=== PATIENT | male | born 1970 | race Caucasian/White ===

== ENCOUNTER 2019-12-06 16:22 | Inpatient (IN) | payer OTHER ==
[~2019-12-06] VITALS: Ht 177.8 cm; Wt 113.1 kg
[2019-12-06] MEDS ORDERED: PIPERACILLIN/TAZOBACTAM 4.5 GM in IV NORMAL SALINE 100ML 100 ML IV ONE (16:45)
[2019-12-06 17:12] LABS: BASO # 0.1 x10^3/uL (0.0-0.2); BASO % 0 % (0-3); EOS % 0 % (0-3); HEMATOCRIT 49.2 % (39.0-53.0); HEMOGLOBIN 16.3 g/dL (13.0-17.5); LYMPH # 0.7 x10^3/uL (1.0-4.8); LYMPH % 2 % (24-48); MEAN CORPUSCULAR HEMOGLOBIN 29 pg (25-35); MEAN CORPUSCULAR HGB CONC 33 g/dL (31-37); MEAN CORPUSCULAR VOLUME 87 fL (79-100); MONO # 1.6 x10^3/uL (0.0-1.1); MONO % 6 % (0-9); NEUT # 26.5 x10^3/uL (1.8-7.7); NEUT % 92 % (31-73); PLATELET COUNT 409 x10^3/uL (140-400); RED BLOOD COUNT 5.65 x10^6/uL (4.30-5.70); RED CELL DISTRIBUTION WIDTH 13.4 % (11.5-14.5); WHITE BLOOD COUNT 28.9 x10^3/uL (4.0-11.0)
--- NOTE | 2019-12-06 17:16 | PHYS DOC ---
Past Medical History Past Medical History: Diabetes-Type I Alcohol Use: None Drug Use: None General Adult EDM: Chief Complaint: TESTICULAR PAIN OR INJURY HPI: HPI: 49-year-old male presented emergency department after being seen yesterday in [facility] for scrotal cellulitis and being discharged with antibiotics. Blood work has been drawn in clinic. Blood work came back today with blood sugar of 500 carbon dioxide of 7 and a white blood cell count of 26,000. He was sent to the emergency department for further evaluation treatment and care. On arrival the patient has pain in his scrotum which is not severe. At some mild to moderate pain. He denies any crepitus of the scrotum or any gangrenous regions. He has nausea. The pain is nonradiating and without alleviating factors. He has been taking his antibiotics as prescribed. Review of systems negative for chest pain shortness of breath vomiting. All other review of systems negative. ED course: 49-year-old male presenting with diabetic ketoacidosis with scrotal cellulitis. On evaluation the scrotum I was able to evaluate the entire scrotum including lifting up the scrotum. There is no black tissue. There is no crepitus to palpation of the scrotum. The patient was started on IV broad- spectrum antibiotics and IV fluid resuscitation. ABG obtained which shows acidosis. Bicarb ordered. Insulin bolus and drip ordered. CT abdomen pelvis ordered as well. Lactic acid was 3.3. Magnesium 2.3. Phosphorus 3.6. EKG obtained and reviewed by myself shows sinus tachycardia. ST segments congruent. Not suggestive of acute ischemia. CT abdomen pelvis pending at 6 PM. Patient was signed out to oncoming physician. We will work towards getting the patient a bed in the intensive care unit. Oncoming ER physician will follow up on testing and continue care while in the emergency department. Heart Score: Risk Factors: Risk Factors: DM, Current or recent (<one month) smoker, HTN, HLP, family history of CAD, obesity. Risk Scores: Score 0 - 3: 2.5% MACE over next 6 weeks - Discharge Home Score 4 - 6: 20.3% MACE over next 6 weeks - Admit for Clinical Observation Score 7 - 10: 72.7% MACE over next 6 weeks - Early Invasive Strategies Current Medications: Current Medications Medications (Trade) Dose Ordered Sig/Stephanie Start Time Stop Time Status Last Admin Dose Admin Piperacillin Sod/ Tazobactam Sod 4.5 gm/Sodium Chloride 100 ml @ 200 mls/hr 1X ONCE 12/06/19 16:45 12/06/19 17:14 DC Sodium Chloride 1,000 ml @ 1,000 mls/hr Q1H 12/06/19 16:43 Allergies: Allergies: Allergies Coded Allergies Type Severity Reaction Last Updated Verified Penicillins Allergy Intermediate Rash 12/06/19 Yes Physical Exam: PE: Constitutional: Well developed, well nourished, kussmaul breathing. alert. HENT: Normocephalic, atraumatic, bilateral external ears normal, oropharynx moist, no oral exudates, nose normal. [] Eyes: PERRLA, EOMI, conjunctiva normal, no discharge. [] Neck: Normal range of motion, no tenderness, supple, no stridor. [] Cardiovascular:Heart rate regular rhythm, no murmur [] Lungs & Thorax: Bilateral breath sounds clear to auscultation tachypneic. Abdomen: Bowel sounds normal, soft, no tenderness, no masses, no pulsatile masses. Scrotal exam: The scrotum is erythematous without crepitus to palpation. Normal testicles. No gangrenous regions. The scrotum was lifted up all aspects of the scrotum and perineum were visualized. Skin: Warm, dry, no erythema, no rash. [] Back: No tenderness, no CVA tenderness. [] Extremities: No tenderness, no cyanosis, no clubbing, ROM intact, no edema. [] Neurologic: Alert and oriented X 3, normal motor function, normal sensory function, no focal deficits noted. [] Psychologic: Affect normal, judgement normal, mood normal. [] Current Patient Data: Labs: Laboratory Tests Test 12/06/19 16:50 White Blood Count 28.9 x10^3/uL (4.0-11.0) H Red Blood Count 5.65 x10^6/uL (4.30-5.70) Hemoglobin 16.3 g/dL (13.0-17.5) Hematocrit 49.2 % (39.0-53.0) Mean Corpuscular Volume 87 fL (79-100) Mean Corpuscular Hemoglobin 29 pg (25-35) Mean Corpuscular Hemoglobin Concent 33 g/dL (31-37) Red Cell Distribution Width 13.4 % (11.5-14.5) Platelet Count 409 x10^3/uL (140-400) H Neutrophils (%) (Auto) 92 % (31-73) H Lymphocytes (%) (Auto) 2 % (24-48) L Monocytes (%) (Auto) 6 % (0-9) Eosinophils (%) (Auto) 0 % (0-3) Basophils (%) (Auto) 0 % (0-3) Neutrophils # (Auto) 26.5 x10^3/uL (1.8-7.7) H Lymphocytes # (Auto) 0.7 x10^3/uL (1.0-4.8) L Monocytes # (Auto) 1.6 x10^3/uL (0.0-1.1) H Eosinophils # (Auto) 0.0 x10^3/uL (0.0-0.7) Basophils # (Auto) 0.1 x10^3/uL (0.0-0.2) Platelet Estimate Pending Laboratory Tests 12/06/19 16:50 EKG: EKG: [] Radiology/Procedures: Radiology/Procedures: [] Course & Med Decision Making: Course & Med Decision Making Pertinent Labs and Imaging studies reviewed. (See chart for details) [] Dragon Disclaimer: Morris Disclaimer: This electronic medical record was generated, in whole or in part, using a voice recognition dictation system. Departure Departure Impression: Primary Impression: Diabetic ketoacidosis Additional Impressions: Severe sepsis Cellulitis, scrotum Disposition: 09 ADMITTED INPT THIS HOSP Admitting Physician: JEFFERSON Condition: GUARDED Referrals: ROMY KNOX MD (PCP) YODIT GARCIA MD Dec 06, 2019 17:15
[2019-12-06] MEDS: IV NORMAL SALINE 1000ML BAG 1,000 ML IV SCH ×7 (17:21→21:13)
[2019-12-06] MEDS ORDERED: CLINDAMYCIN 900MG PREMIX 50 ML IV ONE (17:30)
[2019-12-06] MEDS ORDERED: CIPROFLOXACIN 400MG PREMIX 200 ML IV ONE (17:30)
[2019-12-06] MEDS ORDERED: ONDANSETRON PF 4 MG/2 ML VIAL. IVP ONE (17:30)
[2019-12-06] MEDS ORDERED: IV NORMAL SALINE 1000ML BAG 1,000 ML IV ONE (17:30)
[2019-12-06] MEDS ORDERED: INSULIN REGULAR 100 UNIT/ML 3ML VIAL. IV ONE (17:30)
[2019-12-06 17:31] LABS: % BANDS 4 % (0-9); % LYMPHS 3 % (24-48); % MONOS 6 % (0-10); % SEGS 87 % (35-66); PLATELET CLUMP PRESENT; PLT ESTIMATE INCREASED (ADEQUATE); TOXIC GRANULATION SLIGHT; TOXIC VACUOLATION SLIGHT
[2019-12-06 17:32] LABS: ALBUMIN 3.5 g/dL (3.4-5.0); CALCIUM 9.4 mg/dL (8.5-10.1); CREATININE 1.5 mg/dL (0.7-1.3); DIRECT BILIRUBIN 0.2 mg/dL (0.0-0.2); GFR 49.7; POTASSIUM 4.8 mmol/L (3.5-5.1); TOTAL BILIRUBIN 0.7 mg/dL (0.2-1.0); TOTAL PROTEIN 8.3 g/dL (6.4-8.2)
[2019-12-06] MEDS: HYDROmorphone 2 MG/ML VIAL IV/SQ PRN ×3 (17:33→21:50)
[2019-12-06 17:45] LABS: BASE EXCESS ABG -22 mmol/L (-3-3); HCO3 ABG 5 mmol/L (21-28); PO2 ABG 103 mmHg (75-108); SAT O2 ABG 97 % (92-99)
[2019-12-06 17:59] LABS: FIO2 ABG 21%; PCO2 ABG 16 mmHg (35-46)
[2019-12-06] MEDS ORDERED: INSULIN,REGULAR 100 UNIT DRIP 100 ML IV ONE (18:00)
[2019-12-06] MEDS ORDERED: SODIUM BICARB ADULT 8.4% 50 MEQ/50 ML DISP.SYRIN. IV ONE (18:00)
[2019-12-06 18:12] LABS: MAGNESIUM 2.3 mg/dL (1.8-2.4); PHOSPHORUS 3.6 mg/dL (2.6-4.7)
[2019-12-06] MEDS ORDERED: CONTRAST GIVEN. MC PRN (18:15)
--- NOTE | 2019-12-06 18:21 | PDOC1 ---
History and Physical Date of Admission Date of Admission DATE: 12/06/19 TIME: 18:21 Identification/Chief Complaint Chief Complaint [facility] ,sent to the emergency department for further evaluation treatment and care. On arrival the patient has pain in his scrotum which is not severe.//denies any crepitus of the scrotum or any gangrenous regions. pos nausea. The pain is nonradiating and without alleviating factors. He has been taking his antibiotics as prescribed. Review of systems negative for chest pain shortness of breath vomiting. All other review of systems negative. FOUND TO HAVE diabetic ketoacidosis with scrotal cellulitis. On evaluation the scrotum I was able to evaluate the entire scrotum including lifting up the scrotum. There is no black tissue. There is no crepitus to palpation of the scrotum. PLAN IV broad-spectrum antibiotics and IV fluid resuscitation. ABG obtained which shows acidosis. Bicarb ordered. Insulin bolus and drip ordereD Lactic acid was 3.3. Magnesium 2.3. Phosphorus 3.6. EKG obtained and reviewed by myself shows sinus tachycardia. ST segments congruent Past Medical History Endocrine: Diabetes Family History Family History: Hypertension Social History Smoke: No ALCOHOL: none Drugs: None Current Medications Current Medications Current Medications Piperacillin Sod/ Tazobactam Sod 4.5 gm/Sodium Chloride 100 ml @ 200 mls/hr 1X ONCE IV ; Start 12/06/19 at 16:45; Stop 12/06/19 at 17:22; Status DC Sodium Chloride 1,000 ml @ 1,000 mls/hr Q1H IV Last administered on 12/06/19at 17:21; Start 12/06/19 at 16:43 Ondansetron HCl (Zofran) 4 mg 1X ONCE IVP Last administered on 12/06/19at 17:32; Start 12/06/19 at 17:30; Stop 12/06/19 at 17:31; Status DC Ciprofloxacin/ Dextrose 200 ml @ 200 mls/hr 1X ONCE IV Last administered on 12/06/19at 18:09; Start 12/06/19 at 17:30; Stop 12/06/19 at 18:29 Clindamycin Phosphate 50 ml @ 100 mls/hr 1X ONCE IV Last administered on 12/06/19at 17:50; Start 10/23/20 at 17:30; Stop 12/06/19 at 17:59; Status DC Sodium Chloride 1,000 ml @ 1,000 mls/hr 1X ONCE IV Last administered on 12/06/19at 18:03; Start 12/06/19 at 17:30; Stop 12/06/19 at 18:29 Insulin Human Regular (HumuLIN R VIAL) 10 unit 1X ONCE IV Last administered on 12/06/19at 17:42; Start 12/06/19 at 17:30; Stop 12/06/19 at 17:31; Status DC Hydromorphone HCl (Dilaudid) 0.5 mg PRN Q1HR PRN IV/SQ PAIN GREATER THAN 3/10 Last administered on 12/06/19at 17:33; Start 12/06/19 at 17:30 Insulin Human Regular 100 ml @ 0 mls/hr 1X ONCE IV ; Start 12/06/19 at 18:00; Stop 12/06/19 at 18:01; Status DC Sodium Bicarbonate (Sodium Bicarb Adult 8.4% Syr) 100 meq 1X ONCE IV ; Start 12/06/19 at 18:00; Stop 12/06/19 at 18:01; Status DC Iohexol (Omnipaque 300 Mg/ml) 60 ml 1X ONCE IV ; Start 12/06/19 at 18:30; Stop 12/06/19 at 18:31 Info (CONTRAST GIVEN -- Rx MONITORING) 1 each PRN DAILY PRN MC SEE COMMENTS; Start 12/06/19 at 18:15; Stop 12/08/19 at 18:14 Allergies Allergies: Coded Allergies: Penicillins (Verified Allergy, Intermediate, Rash, 12/06/19) ROS Review of System Review of systems negative for chest pain shortness of breath vomiting. 14 pt ros review of systems otherwise neg General: YES: Chills PSYCHOLOGICAL ROS: No: Anxiety, Behavioral Disorder, Concentration difficultie, Decreased libido, Depression, Disorientation, Hallucinations, Hostility, Irritablity, Memory difficulties, Mood Swings, Obsessive thoughts, Physical abuse, Sexual abuse, Sleep disturbances, Suicidal ideation, Other Eyes: Yes Blurry vision; No Decreased vision, No Double vision, No Dry eyes, No Excessive tearing, No Eye Pain, No Itchy Eyes, No Loss of vision, No Photophobia, No Scotomata, No Uses contacts, No Uses glasses, No Other ALLERGY AND IMMUNOLOGY: No: Hives, Insect Bite Sensitivity, Itchy/Watery Eyes, Nasal Congestion, Post Nasal Drip, Seasonal Allergies, Other Hematological and Lymphatic: No: Bleeding Problems, Blood Clots, Blood Transfusions, Brusing, Night Sweats, Pallor, Swollen Lymph Nodes, Other ENDOCRINE: No: Breast Changes, Galactorrhea, Hair Pattern Changes, Hot Flashes, Malaise/lethargy, Mood Swings, Palpitations, Polydipsia/polyuria, Skin Changes, Temperature Intolerance, Unexpected Weight Changes, Other Respiratory: No: Cough, Hemoptysis, Orthopnea, Pleuritic Pain, Shortness of breath, SOB with excertion, Sputum Changes, Stridor, Tachypnea, Wheezing, Other Cardiovascular: No Chest Pain, No Palpitations, No Orthopnea, No Paroxysmal Noc. Dyspnea, No Edema, No Lt Headedness, No Other Gastrointestinal: Yes Nausea; No Vomiting, No Abdominal Pain, No Diarrhea, No Constipation, No Melena, No Hematochezia, No Other Genitourinary: No Dysuria, No Frequency, No Incontinence, No Hematuria, No Retention, No Discharge, No Urgency, No Pain, No Flank Pain, No Other, No , No , No , No , No , No , No Musculoskeletal: No Gait Disturbance, No Joint Pain, No Joint Stiffness, No Joint Swelling, No Muscle Pain, No Muscular Weakness, No Pain In:, No Swelling In:, No Other Neurological: No Behavorial Changes, No Bowel/Bladder ControlChng, No Confusion, No Dizziness, No Gait Disturbance, No Headaches, No Impaired Coord/balance, No Memory Loss, No Numbness/Tingling, No Seizures, No Speech Problems, No Tremors, No Visual Changes, No Weakness, No Other Skin: Yes Dry Skin, Yes Skin Lesion Changes; No Eczema, No Hair Changes, No Lumps, No Mole Changes, No Mottling, No Nail Changes, No Pruritus, No Rash, No Other, No Acne Physical Exam Physical Exam Constitutional: Well developed, well nourished, kussmaul breathing. alert. HENT: Normocephalic, atraumatic, bilateral external ears normal, oropharynx moist, no oral exudates, nose normal. [] Eyes: PERRLA, EOMI, conjunctiva normal, no discharge. [] Neck: Normal range of motion, no tenderness, supple, no stridor. [] Cardiovascular:Heart rate regular rhythm, no murmur [] Lungs & Thorax: Bilateral breath sounds clear to auscultation tachypneic. Abdomen: Bowel sounds normal, soft, no tenderness, no masses, no pulsatile masses. Scrotal exam: The scrotum is erythematous without crepitus to palpation. Normal testicles. No gangrenous regions. The scrotum was lifted up all aspects of the scrotum and perineum were visualized. Skin: Warm, dry, no erythema, no rash. [] Back: No tenderness, no CVA tenderness. [] Extremities: No tenderness, no cyanosis, no clubbing, ROM intact, no edema. [] Neurologic: Alert and oriented X 3, normal motor function, normal sensory function, no focal deficits noted. [] Psychologic: Affect normal, judgement normal, mood normal. [] General: Alert, Oriented X3, Cooperative, mild distress HEENT: Atraumatic, EOMI, Mucous membr. moist/pink Lungs: Normal air movement Heart: RRR, no gallops Breasts: Not examined Abdomen: Normal bowel sounds, Soft, No tenderness Male Genitals Exam: scrotum tenderness (R) Rectal Exam: not examined PELVIC: Examination not indicated Extremities: No clubbing, No cyanosis Neuro: Normal speech, Cranial nerves 3-12 NL Psych/Mental Status: Mental status NL, Mood NL Vitals Vitals Vital Signs Date Time Temp Pulse Resp B/P (MAP) Pulse Ox O2 Delivery O2 Flow Rate FiO2 12/06/19 17:40 Room Air 12/06/19 16:40 97.7 141 30 167/93 (117) 97 97.7 Labs Labs Laboratory Tests Test 12/06/19 16:50 12/06/19 17:24 12/06/19 17:31 White Blood Count 28.9 x10^3/uL (4.0-11.0) Red Blood Count 5.65 x10^6/uL (4.30-5.70) Hemoglobin 16.3 g/dL (13.0-17.5) Hematocrit 49.2 % (39.0-53.0) Mean Corpuscular Volume 87 fL (79-100) Mean Corpuscular Hemoglobin 29 pg (25-35) Mean Corpuscular Hemoglobin Concent 33 g/dL (31-37) Red Cell Distribution Width 13.4 % (11.5-14.5) Platelet Count 409 x10^3/uL (140-400) Neutrophils (%) (Auto) 92 % (31-73) Lymphocytes (%) (Auto) 2 % (24-48) Monocytes (%) (Auto) 6 % (0-9) Eosinophils (%) (Auto) 0 % (0-3) Basophils (%) (Auto) 0 % (0-3) Neutrophils # (Auto) 26.5 x10^3/uL (1.8-7.7) Lymphocytes # (Auto) 0.7 x10^3/uL (1.0-4.8) Monocytes # (Auto) 1.6 x10^3/uL (0.0-1.1) Eosinophils # (Auto) 0.0 x10^3/uL (0.0-0.7) Basophils # (Auto) 0.1 x10^3/uL (0.0-0.2) Segmented Neutrophils % 87 % (35-66) Band Neutrophils % 4 % (0-9) Lymphocytes % 3 % (24-48) Monocytes % 6 % (0-10) Toxic Granulation Slight Toxic Vacuolation Slight Platelet Estimate Increased (ADEQUATE) Platelet Clumps, EDTA Present Giant Platelets Occ Sodium Level 130 mmol/L (136-145) Potassium Level 4.8 mmol/L (3.5-5.1) Chloride Level 95 mmol/L (98-107) Carbon Dioxide Level 8 mmol/L (21-32) Anion Gap 27 (6-14) Blood Urea Nitrogen 28 mg/dL (8-26) Creatinine 1.5 mg/dL (0.7-1.3) Estimated GFR (Cockcroft-Gault) 49.7 Glucose Level 531 mg/dL (70-99) Lactic Acid Level 3.3 mmol/L (0.4-2.0) Calcium Level 9.4 mg/dL (8.5-10.1) Phosphorus Level 3.6 mg/dL (2.6-4.7) Magnesium Level 2.3 mg/dL (1.8-2.4) Total Bilirubin 0.7 mg/dL (0.2-1.0) Direct Bilirubin 0.2 mg/dL (0.0-0.2) Aspartate Amino Transf (AST/SGOT) 9 U/L (15-37) Alanine Aminotransferase (ALT/SGPT) 15 U/L (16-63) Alkaline Phosphatase 96 U/L (46-116) Troponin I Quantitative < 0.017 ng/mL (0.000-0.055) Total Protein 8.3 g/dL (6.4-8.2) Albumin 3.5 g/dL (3.4-5.0) Lipase 46 U/L (73-393) O2 Saturation 97 % (92-99) Arterial Blood pH 7.12 (7.35-7.45) Arterial Blood pCO2 at Patient Temp 16 mmHg (35-46) Arterial Blood pO2 at Patient Temp 103 mmHg (75-108) Arterial Blood HCO3 5 mmol/L (21-28) Arterial Blood Base Excess -22 mmol/L (-3-3) FiO2 21% Glucose (Fingerstick) 573 mg/dL (70-99) Laboratory Tests Test 12/06/19 16:50 12/06/19 17:24 12/06/19 17:31 White Blood Count 28.9 x10^3/uL (4.0-11.0) Red Blood Count 5.65 x10^6/uL (4.30-5.70) Hemoglobin 16.3 g/dL (13.0-17.5) Hematocrit 49.2 % (39.0-53.0) Mean Corpuscular Volume 87 fL (79-100) Mean Corpuscular Hemoglobin 29 pg (25-35) Mean Corpuscular Hemoglobin Concent 33 g/dL (31-37) Red Cell Distribution Width 13.4 % (11.5-14.5) Platelet Count 409 x10^3/uL (140-400) Neutrophils (%) (Auto) 92 % (31-73) Lymphocytes (%) (Auto) 2 % (24-48) Monocytes (%) (Auto) 6 % (0-9) Eosinophils (%) (Auto) 0 % (0-3) Basophils (%) (Auto) 0 % (0-3) Neutrophils # (Auto) 26.5 x10^3/uL (1.8-7.7) Lymphocytes # (Auto) 0.7 x10^3/uL (1.0-4.8) Monocytes # (Auto) 1.6 x10^3/uL (0.0-1.1) Eosinophils # (Auto) 0.0 x10^3/uL (0.0-0.7) Basophils # (Auto) 0.1 x10^3/uL (0.0-0.2) Segmented Neutrophils % 87 % (35-66) Band Neutrophils % 4 % (0-9) Lymphocytes % 3 % (24-48) Monocytes % 6 % (0-10) Toxic Granulation Slight Toxic Vacuolation Slight Platelet Estimate Increased (ADEQUATE) Platelet Clumps, EDTA Present Giant Platelets Occ Sodium Level 130 mmol/L (136-145) Potassium Level 4.8 mmol/L (3.5-5.1) Chloride Level 95 mmol/L (98-107) Carbon Dioxide Level 8 mmol/L (21-32) Anion Gap 27 (6-14) Blood Urea Nitrogen 28 mg/dL (8-26) Creatinine 1.5 mg/dL (0.7-1.3) Estimated GFR (Cockcroft-Gault) 49.7 Glucose Level 531 mg/dL (70-99) Lactic Acid Level 3.3 mmol/L (0.4-2.0) Calcium Level 9.4 mg/dL (8.5-10.1) Phosphorus Level 3.6 mg/dL (2.6-4.7) Magnesium Level 2.3 mg/dL (1.8-2.4) Total Bilirubin 0.7 mg/dL (0.2-1.0) Direct Bilirubin 0.2 mg/dL (0.0-0.2) Aspartate Amino Transf (AST/SGOT) 9 U/L (15-37) Alanine Aminotransferase (ALT/SGPT) 15 U/L (16-63) Alkaline Phosphatase 96 U/L (46-116) Troponin I Quantitative < 0.017 ng/mL (0.000-0.055) Total Protein 8.3 g/dL (6.4-8.2) Albumin 3.5 g/dL (3.4-5.0) Lipase 46 U/L (73-393) O2 Saturation 97 % (92-99) Arterial Blood pH 7.12 (7.35-7.45) Arterial Blood pCO2 at Patient Temp 16 mmHg (35-46) Arterial Blood pO2 at Patient Temp 103 mmHg (75-108) Arterial Blood HCO3 5 mmol/L (21-28) Arterial Blood Base Excess -22 mmol/L (-3-3) FiO2 21% Glucose (Fingerstick) 573 mg/dL (70-99) Images Images INDICATION: Scrotal cellulitis TECHNIQUE: Sequential axial images through the abdomen and pelvis obtained following the administration of 60 mL of Omni 300 IV contrast. Sagittal and coronal reformatted images were reconstructed from the axial data and reviewed. Comparisons: None FINDINGS: Heart size is normal. No pericardial effusion. Visualized lung bases are clear. No pleural effusion. Liver, spleen, pancreas, gallbladder and adrenals are unremarkable. No perinephric inflammation or hydronephrosis. No renal or ureteral calculi are identified. Bladder is distended and appears thin-walled. Prostate is not enlarged. Large and small bowel are unremarkable. Appendix is normal. No free intra-abdominal air or fluid. No obstruction. Abdominal aorta has a normal course and caliber. Abdominal vasculature is patent. No enlarged abdominal lymph nodes are identified. There is skin thickening at the scrotum. Small left-sided hydrocele is noted. No suspicious osseous lesions or acute fractures. IMPRESSION: 1. Skin thickening at the scrotum with a small left-sided hydrocele. 2. No intra-abdominal abnormality identified. Exposure: One or more of the following in the visualized dose reduction techniques were utilized for this examination: 1. Automated exposure control 2. Adjustment of the MA and/or KV according to patient size 3. Use of iterative of reconstructive technique Electronically signed by: Claudio Pollack MD (12/06/2019 6:53 PM) [facility] DICTATED and SIGNED BY: CLAUDIO POLLACK MD DATE: 12/06/191852 VTE Prophylaxis Ordered VTE Prophylaxis Devices: Yes VTE Pharmacological Prophylaxi: Yes Assessment/Plan Assessment/Plan IMPRESSION: 1. DKA 1. Skin thickening at the scrotum with a small left-sided hydrocele. c/w cellulitis 2. No intra-abdominal abnormality identified. 4. MORBID OBESITY 5. sepsis 6. UNCONTROLLED DIABETES PLAN ADMIT BLOOD CULT ICU BED DKA INSULIN PROTOCOL ID CONSULT DVT PROPHYLAXIS EMPERIC IV ANTIBIOTICS FREQUENT LABS GI PROPHYLAXIS A1C 47 MIN CC TIME Justifications for Admission Other Justification FULBRIGHT,SILVANO W MD Dec 06, 2019 18:21
[2019-12-06] MEDS ORDERED: IOHEXOL 300 MG/ML 100ML VIAL. IV ONE (18:30)
--- NOTE | 2019-12-06 18:56 | RAD ---
Exam: CT of abdomen and pelvis with contrast INDICATION: Scrotal cellulitis TECHNIQUE: Sequential axial images through the abdomen and pelvis obtained following the administration of 60 mL of Omni 300 IV contrast. Sagittal and coronal reformatted images were reconstructed from the axial data and reviewed. Comparisons: None FINDINGS: Heart size is normal. No pericardial effusion. Visualized lung bases are clear. No pleural effusion. Liver, spleen, pancreas, gallbladder and adrenals are unremarkable. No perinephric inflammation or hydronephrosis. No renal or ureteral calculi are identified. Bladder is distended and appears thin-walled. Prostate is not enlarged. Large and small bowel are unremarkable. Appendix is normal. No free intra-abdominal air or fluid. No obstruction. Abdominal aorta has a normal course and caliber. Abdominal vasculature is patent. No enlarged abdominal lymph nodes are identified. There is skin thickening at the scrotum. Small left-sided hydrocele is noted. No suspicious osseous lesions or acute fractures. IMPRESSION: 1. Skin thickening at the scrotum with a small left-sided hydrocele. 2. No intra-abdominal abnormality identified. Exposure: One or more of the following in the visualized dose reduction techniques were utilized for this examination: 1. Automated exposure control 2. Adjustment of the MA and/or KV according to patient size 3. Use of iterative of reconstructive technique Electronically signed by: Nelly Law MD (12/06/2019 6:53 PM) [facility]
[2019-12-06 19:30] LABS: BILIRUBIN,URINE SMALL (NEG); CLARITY,URINE CLEAR; COLOR,URINE YELLOW; NITRITE,URINE NEGATIVE (NEG); PROTEIN,URINE 100 mg/dL (NEG-TRACE); UROBILINOGEN,URINE 0.2 mg/dL (0.2 mg/dL)
[2019-12-06] MEDS ORDERED: LORazepam 0.5 MG TABLET PO PRN (19:30)
[2019-12-06] MEDS ORDERED: 0.9 % SODIUM CHLORIDE 10 ML DISP.SYRIN. IV PRN (19:30)
[2019-12-06] MEDS ORDERED: ALBUTEROL SULFATE 2.5 MG/3 ML NEBU. NEB PRN (19:30)
[2019-12-06] MEDS ORDERED: guaiFENesin ORAL 200 MG/10 ML LIQUID. PO PRN (19:30)
[2019-12-06] MEDS ORDERED: levOFLOXacin PER PHARMACY. MC PRN (19:30)
[2019-12-06] MEDS ORDERED: SODIUM PHOSPHATES 19/7GM 133 ML ENEMA. PR PRN (19:30)
[2019-12-06] MEDS ORDERED: ONDANSETRON PF 4 MG/2 ML VIAL. IV PRN (19:30)
[2019-12-06] MEDS ORDERED: cloNIDine HCL 0.1 MG TABLET PO PRN (19:30)
[2019-12-06] MEDS ORDERED: DOCUSATE SODIUM 100 MG CAPSULE. PO PRN (19:30)
[2019-12-06] MEDS ORDERED: ACETAMINOPHEN 325 MG TABLET. PO PRN (19:30)
[2019-12-06 19:36] LABS: AMORPHOUS SEDIMENT,UR PRESENT /HPF; BACTERIA,URINE 0 /HPF (0-FEW); GRANULAR CASTS,URINE OCCASIONAL /HPF; HYALINE CASTS, URINE FEW /HPF; RBC,URINE 0 /HPF (0-2); WBC,URINE 0 /HPF (0-4)
[2019-12-06 19:38] LABS: PROTHROMBIN TIME PATIENT 17.4 SEC (11.7-14.0)
[2019-12-06 19:48] LABS: D-DIMER 2.09 ug/mlFEU (0.00-0.50)
[2019-12-06] MEDS ORDERED: VANCOMYCIN 2 GM in IV NORMAL SALINE 500ML BAG 500 ML IV ONE (20:00)
[2019-12-06] MEDS ORDERED: IV NORMAL SALINE 500ML BAG 500 ML IV PRN (21:00)
[2019-12-06 23:00] VITALS: BP 108/74
--- NOTE | 2019-12-06 23:31 | NUR ---
Pt. arrived to ICU via bed from ED w/ Scrotal swelling/pain and DKA. He is A/O x4 and will make needs known. Pain level down to 2.
[2019-12-07] VITALS (15 sets, daily range): BP systolic 94–124; BP diastolic 43–77
[2019-12-07 00:06] LABS: CALCIUM 8.4 mg/dL (8.5-10.1); GFR 79.4; POTASSIUM 3.4 mmol/L (3.5-5.1)
[2019-12-07 00:10] LABS: PO2 ABG 66 mmHg (75-108); SAT O2 ABG 95 % (92-99)
[2019-12-07 00:18] LABS: FIO2 ABG 21; HCO3 ABG 13 mmol/L (21-28); PCO2 ABG 24 mmHg (35-46)
[2019-12-07] MEDS: ENOXAPARIN 40 MG/0.4 ML SYRINGE. SQ SCH ×2 (00:23→21:24)
[2019-12-07] MEDS: VANCOMYCIN PER PHARMACY MC PRN ×2 (01:45→13:01)
--- NOTE | 2019-12-07 01:46 | NUR ---
Pharmacy Vancomycin Dosing Note S:Consulted to monitor and dose vancomycin started 12/06/19. O:MIRA OLIVER is a 49 year old M with Cellulitis . Height: 5 feet, 10 inches Weight: 113.1 kg [place] Body Weight: 73.00 Adjusted Body Weight: 89.04 Dosing Weight: Actual Other Antibiotics: LEVOFLOXACIN 500MG Q24H LABS: Last BUN: 21 Last Creatinine: 1 Creatinine Clearance: 74 mL/min Last WBC: 28.9 Last Procalcitonin: Tmax (past 24 hours): Microbiology: I/O: Drug Levels: Last level: on at Last dose given 12/06/19 at 2100 Vancomycin Dosing: Loading Dose: 2000 mg x1 Dosing Weight: Actual Target Trough: 10-20 A: Based on: WT AND CRCL P: 1. Begin Vancomycin 1750 mg IV q12h 2. Follow up Trough level on 12/08/19 at 0830 3. Pharmacy will continue to monitor, follow and adjust therapy as needed. TRISTON WATSON RPH, 12/07/19 0146 Signed: 12/07/19 at 0147 by TRISTON WATSON RPH PHA
[2019-12-07] MEDS ORDERED: DEXTROSE 50% 25 GM / 50ML DISP.SYRIN. IV PRN (02:15)
--- NOTE | 2019-12-07 03:37 | EKG ---
[facility] [address] [place] [address] Test Date: 2019-12-06 Test Time: 17:12:29 Pat Name: MIRA OLIVER Department: Room: Gender: M Inspector Eyeglass: : 1970 Requested By: YODIT GARCIA Order Number: [id number] Reading MD: Measurements Intervals [place] Rate: 139 P: CA: QRS: -164 QRSD: 68 T: 145 QT: 332 QTc: 511 Interpretive Statements SUPRAVENTRICULAR TACHYCARDIA ABNORMAL RIGHT SUPERIOR AXIS DEVIATION CONSIDER RIGHT VENTRICULAR HYPERTROPHY QRS(T) CONTOUR ABNORMALITY CONSIDER HIGH LATERAL INFARCT ABNORMAL ECG RI6.01 No previous ECG available for comparison
[2019-12-07] MEDS: INSULIN LISPRO 300 UNITS/3 ML VIAL. SQ SCH ×7 (04:30→20:00)
[2019-12-07] MEDS: HYDROmorphone 2 MG/ML VIAL IVP PRN ×2 (04:51→18:20)
[2019-12-07 05:12] LABS: BASO # 0.1 x10^3/uL (0.0-0.2); BASO % 1 % (0-3); EOS % 0 % (0-3); HEMATOCRIT 36.5 % (39.0-53.0); HEMOGLOBIN 12.7 g/dL (13.0-17.5); LYMPH # 0.8 x10^3/uL (1.0-4.8); LYMPH % 5 % (24-48); MEAN CORPUSCULAR HEMOGLOBIN 29 pg (25-35); MEAN CORPUSCULAR HGB CONC 35 g/dL (31-37); MEAN CORPUSCULAR VOLUME 83 fL (79-100); MONO # 1.4 x10^3/uL (0.0-1.1); MONO % 8 % (0-9); NEUT # 14.2 x10^3/uL (1.8-7.7); NEUT % 86 % (31-73); PLATELET COUNT 275 x10^3/uL (140-400); RED CELL DISTRIBUTION WIDTH 13.3 % (11.5-14.5); WHITE BLOOD COUNT 16.5 x10^3/uL (4.0-11.0)
[2019-12-07 05:27] LABS: CALCIUM 8.2 mg/dL (8.5-10.1); CREATININE 0.9 mg/dL (0.7-1.3); GFR 89.7; POTASSIUM 3.4 mmol/L (3.5-5.1)
[2019-12-07 05:32] LABS: ALBUMIN 2.4 g/dL (3.4-5.0); ALBUMIN/GLOBULIN RATIO 0.6 (1.0-1.7); TOTAL BILIRUBIN 0.5 mg/dL (0.2-1.0); TOTAL PROTEIN 6.4 g/dL (6.4-8.2)
--- NOTE | 2019-12-07 05:46 | NUR ---
Around 0530 lab called w/ a critical CO2 of 12. Notified around 0541 and he wants a BMP repeated @ noon.
--- NOTE | 2019-12-07 06:49 | NUR ---
Talked w/ Dr. Jermaine Neal about consult. Will see pt. later today.
[2019-12-07] MEDS ORDERED: FLU VACC QS 2020-21(6MOS+)/PF 0.5 ML SYRINGE. VAX IM ONE (09:00)
[2019-12-07] MEDS: IV NORMAL SALINE 1000ML BAG 1,000 ML IV SCH ×2 (09:06→18:20)
[2019-12-07] MEDS ORDERED: IV NORMAL SALINE 1000ML BAG 1,000 ML IV ONE (09:15)
[2019-12-07] MEDS: VANCOMYCIN 1.75 GM in IV NORMAL SALINE 500ML BAG 500 ML IV SCH ×2 (09:19→21:24)
[2019-12-07] MEDS ORDERED: DIPHENHYDRAMINE/ZINC ACETATE 2%/0.1% TOPICAL CREAM 28GM TUBE. TP PRN (09:30)
--- NOTE | 2019-12-07 09:30 | PDOC ---
PROGRESS NOTES Date of Service: DATE: 12/07/19 TIME: 09:27 Chief Complaint Chief Complaint 1. DKA 1. Skin thickening at the scrotum with a small left-sided hydrocele. c/w cellulitis 2. No intra-abdominal abnormality identified. 4. obese, BMI 36 5. sepsis 6. UNCONTROLLED DIABETES 2, poor compliance 2 years, had no insurance until recently History of Present Illness History of Present Illness admitted to ICU gap closed this AM, now worse, will give additional fluid and insulin cont the IV abx he reviewed his entire 2 yr history with me still havining marked scrotal redness and swelling OK to transfer out of ICU later today, recheck labs at noon Vitals Vitals Vital Signs Date Time Temp Pulse Resp B/P (MAP) Pulse Ox O2 Delivery O2 Flow Rate FiO2 12/07/19 07:46 Room Air 12/07/19 07:00 97.9 105 20 110/69 (83) 93 97.9 Physical Exam General: Alert, Oriented X3, Cooperative, mild distress Abdomen: Normal bowel sounds, Soft, No tenderness Extremities: No clubbing, No cyanosis Labs LABS Laboratory Tests Test 12/06/19 16:50 12/06/19 17:24 12/06/19 17:31 12/06/19 19:15 White Blood Count 28.9 x10^3/uL (4.0-11.0) Red Blood Count 5.65 x10^6/uL (4.30-5.70) Hemoglobin 16.3 g/dL (13.0-17.5) Hematocrit 49.2 % (39.0-53.0) Mean Corpuscular Volume 87 fL (79-100) Mean Corpuscular Hemoglobin 29 pg (25-35) Mean Corpuscular Hemoglobin Concent 33 g/dL (31-37) Red Cell Distribution Width 13.4 % (11.5-14.5) Platelet Count 409 x10^3/uL (140-400) Neutrophils (%) (Auto) 92 % (31-73) Lymphocytes (%) (Auto) 2 % (24-48) Monocytes (%) (Auto) 6 % (0-9) Eosinophils (%) (Auto) 0 % (0-3) Basophils (%) (Auto) 0 % (0-3) Neutrophils # (Auto) 26.5 x10^3/uL (1.8-7.7) Lymphocytes # (Auto) 0.7 x10^3/uL (1.0-4.8) Monocytes # (Auto) 1.6 x10^3/uL (0.0-1.1) Eosinophils # (Auto) 0.0 x10^3/uL (0.0-0.7) Basophils # (Auto) 0.1 x10^3/uL (0.0-0.2) Segmented Neutrophils % 87 % (35-66) Band Neutrophils % 4 % (0-9) Lymphocytes % 3 % (24-48) Monocytes % 6 % (0-10) Toxic Granulation Slight Toxic Vacuolation Slight Platelet Estimate Increased (ADEQUATE) Platelet Clumps, EDTA Present Giant Platelets Occ Prothrombin Time 17.4 SEC (11.7-14.0) Prothromb Time International Ratio 1.5 (0.8-1.1) Sodium Level 130 mmol/L (136-145) Potassium Level 4.8 mmol/L (3.5-5.1) Chloride Level 95 mmol/L (98-107) Carbon Dioxide Level 8 mmol/L (21-32) Anion Gap 27 (6-14) Blood Urea Nitrogen 28 mg/dL (8-26) Creatinine 1.5 mg/dL (0.7-1.3) Estimated GFR (Cockcroft-Gault) 49.7 Glucose Level 531 mg/dL (70-99) Lactic Acid Level 3.3 mmol/L (0.4-2.0) Calcium Level 9.4 mg/dL (8.5-10.1) Phosphorus Level 3.6 mg/dL (2.6-4.7) Magnesium Level 2.3 mg/dL (1.8-2.4) Total Bilirubin 0.7 mg/dL (0.2-1.0) Direct Bilirubin 0.2 mg/dL (0.0-0.2) Aspartate Amino Transf (AST/SGOT) 9 U/L (15-37) Alanine Aminotransferase (ALT/SGPT) 15 U/L (16-63) Alkaline Phosphatase 96 U/L (46-116) Troponin I Quantitative < 0.017 ng/mL (0.000-0.055) Total Protein 8.3 g/dL (6.4-8.2) Albumin 3.5 g/dL (3.4-5.0) Lipase 46 U/L (73-393) O2 Saturation 97 % (92-99) Arterial Blood pH 7.12 (7.35-7.45) Arterial Blood pCO2 at Patient Temp 16 mmHg (35-46) Arterial Blood pO2 at Patient Temp 103 mmHg (75-108) Arterial Blood HCO3 5 mmol/L (21-28) Arterial Blood Base Excess -22 mmol/L (-3-3) FiO2 21% Glucose (Fingerstick) 573 mg/dL (70-99) Urine Collection Type Unknown Urine Color Yellow Urine Clarity Clear Urine pH 5.0 (<5.0-8.0) Urine Specific [place] >=1.030 (1.000-1.030) Urine Protein 100 mg/dL (NEG-TRACE) Urine Glucose (UA) >=1000 mg/dL (NEG) Urine Ketones (Stick) >=80 mg/dL (NEG) Urine Blood Small (NEG) Urine Nitrite Negative (NEG) Urine Bilirubin Small (NEG) Urine Urobilinogen Dipstick 0.2 mg/dL (0.2 mg/dL) Urine Leukocyte Esterase Negative (NEG) Urine RBC 0 /HPF (0-2) Urine WBC 0 /HPF (0-4) Urine Squamous Epithelial Cells Few /LPF Urine Amorphous Sediment Present /HPF Urine Bacteria 0 /HPF (0-FEW) Urine Hyaline Casts Few /HPF Urine Granular Casts Occasional /HPF Urine Mucus Slight /LPF Test 12/06/19 19:22 12/06/19 19:38 12/06/19 20:54 12/06/19 21:50 Fibrinogen 1016 mg/dL (200-440) D-Dimer (Zenobia) 2.09 ug/mlFEU (0.00-0.50) Procalcitonin 0.29 ng/mL (0.00-0.10) Glucose (Fingerstick) 448 mg/dL (70-99) 396 mg/dL (70-99) Lactic Acid Level 1.7 mmol/L (0.4-2.0) Test 12/06/19 22:03 12/06/19 23:09 12/06/19 23:45 12/07/19 00:08 Glucose (Fingerstick) 258 mg/dL (70-99) 204 mg/dL (70-99) Sodium Level 138 mmol/L (136-145) Potassium Level 3.4 mmol/L (3.5-5.1) Chloride Level 108 mmol/L (98-107) Carbon Dioxide Level 16 mmol/L (21-32) Anion Gap 14 (6-14) Blood Urea Nitrogen 21 mg/dL (8-26) Creatinine 1.0 mg/dL (0.7-1.3) Estimated GFR (Cockcroft-Gault) 79.4 Glucose Level 169 mg/dL (70-99) Lactic Acid Level 1.5 mmol/L (0.4-2.0) Calcium Level 8.4 mg/dL (8.5-10.1) O2 Saturation 95 % (92-99) Arterial Blood pH 7.35 (7.35-7.45) Arterial Blood pCO2 at Patient Temp 24 mmHg (35-46) Arterial Blood pO2 at Patient Temp 66 mmHg (75-108) Arterial Blood HCO3 13 mmol/L (21-28) FiO2 21 Test 12/07/19 00:11 12/07/19 00:14 12/07/19 01:22 12/07/19 04:14 Glucose (Fingerstick) 131 mg/dL (70-99) 123 mg/dL (70-99) 140 mg/dL (70-99) 211 mg/dL (70-99) Test 12/07/19 04:45 12/07/19 06:16 White Blood Count 16.5 x10^3/uL (4.0-11.0) Red Blood Count 4.40 x10^6/uL (4.30-5.70) Hemoglobin 12.7 g/dL (13.0-17.5) Hematocrit 36.5 % (39.0-53.0) Mean Corpuscular Volume 83 fL (79-100) Mean Corpuscular Hemoglobin 29 pg (25-35) Mean Corpuscular Hemoglobin Concent 35 g/dL (31-37) Red Cell Distribution Width 13.3 % (11.5-14.5) Platelet Count 275 x10^3/uL (140-400) Neutrophils (%) (Auto) 86 % (31-73) Lymphocytes (%) (Auto) 5 % (24-48) Monocytes (%) (Auto) 8 % (0-9) Eosinophils (%) (Auto) 0 % (0-3) Basophils (%) (Auto) 1 % (0-3) Neutrophils # (Auto) 14.2 x10^3/uL (1.8-7.7) Lymphocytes # (Auto) 0.8 x10^3/uL (1.0-4.8) Monocytes # (Auto) 1.4 x10^3/uL (0.0-1.1) Eosinophils # (Auto) 0.0 x10^3/uL (0.0-0.7) Basophils # (Auto) 0.1 x10^3/uL (0.0-0.2) Sodium Level 135 mmol/L (136-145) Potassium Level 3.4 mmol/L (3.5-5.1) Chloride Level 106 mmol/L (98-107) Carbon Dioxide Level 12 mmol/L (21-32) Anion Gap 17 (6-14) Blood Urea Nitrogen 19 mg/dL (8-26) Creatinine 0.9 mg/dL (0.7-1.3) Estimated GFR (Cockcroft-Gault) 89.7 BUN/Creatinine Ratio 21 (6-20) Glucose Level 252 mg/dL (70-99) Calcium Level 8.2 mg/dL (8.5-10.1) Total Bilirubin 0.5 mg/dL (0.2-1.0) Aspartate Amino Transf (AST/SGOT) 8 U/L (15-37) Alanine Aminotransferase (ALT/SGPT) 13 U/L (16-63) Alkaline Phosphatase 55 U/L (46-116) Total Protein 6.4 g/dL (6.4-8.2) Albumin 2.4 g/dL (3.4-5.0) Albumin/Globulin Ratio 0.6 (1.0-1.7) Glucose (Fingerstick) 246 mg/dL (70-99) Review of Systems Review of Systems pain, wekaness, lethargy Assessment and Plan Assessmemt and Plan Problems Medical Problems: (1) Cellulitis, scrotum Status: Acute (2) Diabetic ketoacidosis Status: Acute (3) Severe sepsis Status: Acute Comment Review of Relevant I have reviewed the following items brandin (where applicable) has been applied. Labs Laboratory Tests Test 12/06/19 16:50 12/06/19 17:24 12/06/19 17:31 12/06/19 19:15 White Blood Count 28.9 x10^3/uL (4.0-11.0) Red Blood Count 5.65 x10^6/uL (4.30-5.70) Hemoglobin 16.3 g/dL (13.0-17.5) Hematocrit 49.2 % (39.0-53.0) Mean Corpuscular Volume 87 fL (79-100) Mean Corpuscular Hemoglobin 29 pg (25-35) Mean Corpuscular Hemoglobin Concent 33 g/dL (31-37) Red Cell Distribution Width 13.4 % (11.5-14.5) Platelet Count 409 x10^3/uL (140-400) Neutrophils (%) (Auto) 92 % (31-73) Lymphocytes (%) (Auto) 2 % (24-48) Monocytes (%) (Auto) 6 % (0-9) Eosinophils (%) (Auto) 0 % (0-3) Basophils (%) (Auto) 0 % (0-3) Neutrophils # (Auto) 26.5 x10^3/uL (1.8-7.7) Lymphocytes # (Auto) 0.7 x10^3/uL (1.0-4.8) Monocytes # (Auto) 1.6 x10^3/uL (0.0-1.1) Eosinophils # (Auto) 0.0 x10^3/uL (0.0-0.7) Basophils # (Auto) 0.1 x10^3/uL (0.0-0.2) Segmented Neutrophils % 87 % (35-66) Band Neutrophils % 4 % (0-9) Lymphocytes % 3 % (24-48) Monocytes % 6 % (0-10) Toxic Granulation Slight Toxic Vacuolation Slight Platelet Estimate Increased (ADEQUATE) Platelet Clumps, EDTA Present Giant Platelets Occ Prothrombin Time 17.4 SEC (11.7-14.0) Prothromb Time International Ratio 1.5 (0.8-1.1) Sodium Level 130 mmol/L (136-145) Potassium Level 4.8 mmol/L (3.5-5.1) Chloride Level 95 mmol/L (98-107) Carbon Dioxide Level 8 mmol/L (21-32) Anion Gap 27 (6-14) Blood Urea Nitrogen 28 mg/dL (8-26) Creatinine 1.5 mg/dL (0.7-1.3) Estimated GFR (Cockcroft-Gault) 49.7 Glucose Level 531 mg/dL (70-99) Lactic Acid Level 3.3 mmol/L (0.4-2.0) Calcium Level 9.4 mg/dL (8.5-10.1) Phosphorus Level 3.6 mg/dL (2.6-4.7) Magnesium Level 2.3 mg/dL (1.8-2.4) Total Bilirubin 0.7 mg/dL (0.2-1.0) Direct Bilirubin 0.2 mg/dL (0.0-0.2) Aspartate Amino Transf (AST/SGOT) 9 U/L (15-37) Alanine Aminotransferase (ALT/SGPT) 15 U/L (16-63) Alkaline Phosphatase 96 U/L (46-116) Troponin I Quantitative < 0.017 ng/mL (0.000-0.055) Total Protein 8.3 g/dL (6.4-8.2) Albumin 3.5 g/dL (3.4-5.0) Lipase 46 U/L (73-393) O2 Saturation 97 % (92-99) Arterial Blood pH 7.12 (7.35-7.45) Arterial Blood pCO2 at Patient Temp 16 mmHg (35-46) Arterial Blood pO2 at Patient Temp 103 mmHg (75-108) Arterial Blood HCO3 5 mmol/L (21-28) Arterial Blood Base Excess -22 mmol/L (-3-3) FiO2 21% Glucose (Fingerstick) 573 mg/dL (70-99) Urine Collection Type Unknown Urine Color Yellow Urine Clarity Clear Urine pH 5.0 (<5.0-8.0) Urine Specific [place] >=1.030 (1.000-1.030) Urine Protein 100 mg/dL (NEG-TRACE) Urine Glucose (UA) >=1000 mg/dL (NEG) Urine Ketones (Stick) >=80 mg/dL (NEG) Urine Blood Small (NEG) Urine Nitrite Negative (NEG) Urine Bilirubin Small (NEG) Urine Urobilinogen Dipstick 0.2 mg/dL (0.2 mg/dL) Urine Leukocyte Esterase Negative (NEG) Urine RBC 0 /HPF (0-2) Urine WBC 0 /HPF (0-4) Urine Squamous Epithelial Cells Few /LPF Urine Amorphous Sediment Present /HPF Urine Bacteria 0 /HPF (0-FEW) Urine Hyaline Casts Few /HPF Urine Granular Casts Occasional /HPF Urine Mucus Slight /LPF Test 12/06/19 19:22 12/06/19 19:38 12/06/19 20:54 12/06/19 21:50 Fibrinogen 1016 mg/dL (200-440) D-Dimer (Zenobia) 2.09 ug/mlFEU (0.00-0.50) Procalcitonin 0.29 ng/mL (0.00-0.10) Glucose (Fingerstick) 448 mg/dL (70-99) 396 mg/dL (70-99) Lactic Acid Level 1.7 mmol/L (0.4-2.0) Test 12/06/19 22:03 12/06/19 23:09 12/06/19 23:45 12/07/19 00:08 Glucose (Fingerstick) 258 mg/dL (70-99) 204 mg/dL (70-99) Sodium Level 138 mmol/L (136-145) Potassium Level 3.4 mmol/L (3.5-5.1) Chloride Level 108 mmol/L (98-107) Carbon Dioxide Level 16 mmol/L (21-32) Anion Gap 14 (6-14) Blood Urea Nitrogen 21 mg/dL (8-26) Creatinine 1.0 mg/dL (0.7-1.3) Estimated GFR (Cockcroft-Gault) 79.4 Glucose Level 169 mg/dL (70-99) Lactic Acid Level 1.5 mmol/L (0.4-2.0) Calcium Level 8.4 mg/dL (8.5-10.1) O2 Saturation 95 % (92-99) Arterial Blood pH 7.35 (7.35-7.45) Arterial Blood pCO2 at Patient Temp 24 mmHg (35-46) Arterial Blood pO2 at Patient Temp 66 mmHg (75-108) Arterial Blood HCO3 13 mmol/L (21-28) FiO2 21 Test 12/07/19 00:11 12/07/19 00:14 12/07/19 01:22 12/07/19 04:14 Glucose (Fingerstick) 131 mg/dL (70-99) 123 mg/dL (70-99) 140 mg/dL (70-99) 211 mg/dL (70-99) Test 12/07/19 04:45 12/07/19 06:16 White Blood Count 16.5 x10^3/uL (4.0-11.0) Red Blood Count 4.40 x10^6/uL (4.30-5.70) Hemoglobin 12.7 g/dL (13.0-17.5) Hematocrit 36.5 % (39.0-53.0) Mean Corpuscular Volume 83 fL (79-100) Mean Corpuscular Hemoglobin 29 pg (25-35) Mean Corpuscular Hemoglobin Concent 35 g/dL (31-37) Red Cell Distribution Width 13.3 % (11.5-14.5) Platelet Count 275 x10^3/uL (140-400) Neutrophils (%) (Auto) 86 % (31-73) Lymphocytes (%) (Auto) 5 % (24-48) Monocytes (%) (Auto) 8 % (0-9) Eosinophils (%) (Auto) 0 % (0-3) Basophils (%) (Auto) 1 % (0-3) Neutrophils # (Auto) 14.2 x10^3/uL (1.8-7.7) Lymphocytes # (Auto) 0.8 x10^3/uL (1.0-4.8) Monocytes # (Auto) 1.4 x10^3/uL (0.0-1.1) Eosinophils # (Auto) 0.0 x10^3/uL (0.0-0.7) Basophils # (Auto) 0.1 x10^3/uL (0.0-0.2) Sodium Level 135 mmol/L (136-145) Potassium Level 3.4 mmol/L (3.5-5.1) Chloride Level 106 mmol/L (98-107) Carbon Dioxide Level 12 mmol/L (21-32) Anion Gap 17 (6-14) Blood Urea Nitrogen 19 mg/dL (8-26) Creatinine 0.9 mg/dL (0.7-1.3) Estimated GFR (Cockcroft-Gault) 89.7 BUN/Creatinine Ratio 21 (6-20) Glucose Level 252 mg/dL (70-99) Calcium Level 8.2 mg/dL (8.5-10.1) Total Bilirubin 0.5 mg/dL (0.2-1.0) Aspartate Amino Transf (AST/SGOT) 8 U/L (15-37) Alanine Aminotransferase (ALT/SGPT) 13 U/L (16-63) Alkaline Phosphatase 55 U/L (46-116) Total Protein 6.4 g/dL (6.4-8.2) Albumin 2.4 g/dL (3.4-5.0) Albumin/Globulin Ratio 0.6 (1.0-1.7) Glucose (Fingerstick) 246 mg/dL (70-99) Laboratory Tests Test 12/06/19 16:50 12/06/19 17:24 12/06/19 17:31 12/06/19 19:15 White Blood Count 28.9 x10^3/uL (4.0-11.0) Red Blood Count 5.65 x10^6/uL (4.30-5.70) Hemoglobin 16.3 g/dL (13.0-17.5) Hematocrit 49.2 % (39.0-53.0) Mean Corpuscular Volume 87 fL (79-100) Mean Corpuscular Hemoglobin 29 pg (25-35) Mean Corpuscular Hemoglobin Concent 33 g/dL (31-37) Red Cell Distribution Width 13.4 % (11.5-14.5) Platelet Count 409 x10^3/uL (140-400) Neutrophils (%) (Auto) 92 % (31-73) Lymphocytes (%) (Auto) 2 % (24-48) Monocytes (%) (Auto) 6 % (0-9) Eosinophils (%) (Auto) 0 % (0-3) Basophils (%) (Auto) 0 % (0-3) Neutrophils # (Auto) 26.5 x10^3/uL (1.8-7.7) Lymphocytes # (Auto) 0.7 x10^3/uL (1.0-4.8) Monocytes # (Auto) 1.6 x10^3/uL (0.0-1.1) Eosinophils # (Auto) 0.0 x10^3/uL (0.0-0.7) Basophils # (Auto) 0.1 x10^3/uL (0.0-0.2) Segmented Neutrophils % 87 % (35-66) Band Neutrophils % 4 % (0-9) Lymphocytes % 3 % (24-48) Monocytes % 6 % (0-10) Toxic Granulation Slight Toxic Vacuolation Slight Platelet Estimate Increased (ADEQUATE) Platelet Clumps, EDTA Present Giant Platelets Occ Prothrombin Time 17.4 SEC (11.7-14.0) Prothromb Time International Ratio 1.5 (0.8-1.1) Sodium Level 130 mmol/L (136-145) Potassium Level 4.8 mmol/L (3.5-5.1) Chloride Level 95 mmol/L (98-107) Carbon Dioxide Level 8 mmol/L (21-32) Anion Gap 27 (6-14) Blood Urea Nitrogen 28 mg/dL (8-26) Creatinine 1.5 mg/dL (0.7-1.3) Estimated GFR (Cockcroft-Gault) 49.7 Glucose Level 531 mg/dL (70-99) Lactic Acid Level 3.3 mmol/L (0.4-2.0) Calcium Level 9.4 mg/dL (8.5-10.1) Phosphorus Level 3.6 mg/dL (2.6-4.7) Magnesium Level 2.3 mg/dL (1.8-2.4) Total Bilirubin 0.7 mg/dL (0.2-1.0) Direct Bilirubin 0.2 mg/dL (0.0-0.2) Aspartate Amino Transf (AST/SGOT) 9 U/L (15-37) Alanine Aminotransferase (ALT/SGPT) 15 U/L (16-63) Alkaline Phosphatase 96 U/L (46-116) Troponin I Quantitative < 0.017 ng/mL (0.000-0.055) Total Protein 8.3 g/dL (6.4-8.2) Albumin 3.5 g/dL (3.4-5.0) Lipase 46 U/L (73-393) O2 Saturation 97 % (92-99) Arterial Blood pH 7.12 (7.35-7.45) Arterial Blood pCO2 at Patient Temp 16 mmHg (35-46) Arterial Blood pO2 at Patient Temp 103 mmHg (75-108) Arterial Blood HCO3 5 mmol/L (21-28) Arterial Blood Base Excess -22 mmol/L (-3-3) FiO2 21% Glucose (Fingerstick) 573 mg/dL (70-99) Urine Collection Type Unknown Urine Color Yellow Urine Clarity Clear Urine pH 5.0 (<5.0-8.0) Urine Specific [place] >=1.030 (1.000-1.030) Urine Protein 100 mg/dL (NEG-TRACE) Urine Glucose (UA) >=1000 mg/dL (NEG) Urine Ketones (Stick) >=80 mg/dL (NEG) Urine Blood Small (NEG) Urine Nitrite Negative (NEG) Urine Bilirubin Small (NEG) Urine Urobilinogen Dipstick 0.2 mg/dL (0.2 mg/dL) Urine Leukocyte Esterase Negative (NEG) Urine RBC 0 /HPF (0-2) Urine WBC 0 /HPF (0-4) Urine Squamous Epithelial Cells Few /LPF Urine Amorphous Sediment Present /HPF Urine Bacteria 0 /HPF (0-FEW) Urine Hyaline Casts Few /HPF Urine Granular Casts Occasional /HPF Urine Mucus Slight /LPF Test 12/06/19 19:22 12/06/19 19:38 12/06/19 20:54 12/06/19 21:50 Fibrinogen 1016 mg/dL (200-440) D-Dimer (Zenobia) 2.09 ug/mlFEU (0.00-0.50) Procalcitonin 0.29 ng/mL (0.00-0.10) Glucose (Fingerstick) 448 mg/dL (70-99) 396 mg/dL (70-99) Lactic Acid Level 1.7 mmol/L (0.4-2.0) Test 12/06/19 22:03 12/06/19 23:09 12/06/19 23:45 12/07/19 00:08 Glucose (Fingerstick) 258 mg/dL (70-99) 204 mg/dL (70-99) Sodium Level 138 mmol/L (136-145) Potassium Level 3.4 mmol/L (3.5-5.1) Chloride Level 108 mmol/L (98-107) Carbon Dioxide Level 16 mmol/L (21-32) Anion Gap 14 (6-14) Blood Urea Nitrogen 21 mg/dL (8-26) Creatinine 1.0 mg/dL (0.7-1.3) Estimated GFR (Cockcroft-Gault) 79.4 Glucose Level 169 mg/dL (70-99) Lactic Acid Level 1.5 mmol/L (0.4-2.0) Calcium Level 8.4 mg/dL (8.5-10.1) O2 Saturation 95 % (92-99) Arterial Blood pH 7.35 (7.35-7.45) Arterial Blood pCO2 at Patient Temp 24 mmHg (35-46) Arterial Blood pO2 at Patient Temp 66 mmHg (75-108) Arterial Blood HCO3 13 mmol/L (21-28) FiO2 21 Test 12/07/19 00:11 12/07/19 00:14 12/07/19 01:22 12/07/19 04:14 Glucose (Fingerstick) 131 mg/dL (70-99) 123 mg/dL (70-99) 140 mg/dL (70-99) 211 mg/dL (70-99) Test 12/07/19 04:45 12/07/19 06:16 White Blood Count 16.5 x10^3/uL (4.0-11.0) Red Blood Count 4.40 x10^6/uL (4.30-5.70) Hemoglobin 12.7 g/dL (13.0-17.5) Hematocrit 36.5 % (39.0-53.0) Mean Corpuscular Volume 83 fL (79-100) Mean Corpuscular Hemoglobin 29 pg (25-35) Mean Corpuscular Hemoglobin Concent 35 g/dL (31-37) Red Cell Distribution Width 13.3 % (11.5-14.5) Platelet Count 275 x10^3/uL (140-400) Neutrophils (%) (Auto) 86 % (31-73) Lymphocytes (%) (Auto) 5 % (24-48) Monocytes (%) (Auto) 8 % (0-9) Eosinophils (%) (Auto) 0 % (0-3) Basophils (%) (Auto) 1 % (0-3) Neutrophils # (Auto) 14.2 x10^3/uL (1.8-7.7) Lymphocytes # (Auto) 0.8 x10^3/uL (1.0-4.8) Monocytes # (Auto) 1.4 x10^3/uL (0.0-1.1) Eosinophils # (Auto) 0.0 x10^3/uL (0.0-0.7) Basophils # (Auto) 0.1 x10^3/uL (0.0-0.2) Sodium Level 135 mmol/L (136-145) Potassium Level 3.4 mmol/L (3.5-5.1) Chloride Level 106 mmol/L (98-107) Carbon Dioxide Level 12 mmol/L (21-32) Anion Gap 17 (6-14) Blood Urea Nitrogen 19 mg/dL (8-26) Creatinine 0.9 mg/dL (0.7-1.3) Estimated GFR (Cockcroft-Gault) 89.7 BUN/Creatinine Ratio 21 (6-20) Glucose Level 252 mg/dL (70-99) Calcium Level 8.2 mg/dL (8.5-10.1) Total Bilirubin 0.5 mg/dL (0.2-1.0) Aspartate Amino Transf (AST/SGOT) 8 U/L (15-37) Alanine Aminotransferase (ALT/SGPT) 13 U/L (16-63) Alkaline Phosphatase 55 U/L (46-116) Total Protein 6.4 g/dL (6.4-8.2) Albumin 2.4 g/dL (3.4-5.0) Albumin/Globulin Ratio 0.6 (1.0-1.7) Glucose (Fingerstick) 246 mg/dL (70-99) Medications Current Medications Piperacillin Sod/ Tazobactam Sod 4.5 gm/Sodium Chloride 100 ml @ 200 mls/hr 1X ONCE IV ; Start 12/06/19 at 16:45; Stop 12/06/19 at 17:22; Status DC Sodium Chloride 1,000 ml @ 1,000 mls/hr Q1H IV Last administered on 12/06/19at 19:45; Start 12/06/19 at 16:43; Stop 12/06/19 at 19:28; Status DC Ondansetron HCl (Zofran) 4 mg 1X ONCE IVP Last administered on 12/06/19at 17:32; Start 12/06/19 at 17:30; Stop 12/06/19 at 17:31; Status DC Ciprofloxacin/ Dextrose 200 ml @ 200 mls/hr 1X ONCE IV Last administered on 12/06/19at 18:09; Start 12/06/19 at 17:30; Stop 12/06/19 at 18:29; Status DC Clindamycin Phosphate 50 ml @ 100 mls/hr 1X ONCE IV Last administered on 12/06/19at 17:50; Start 12/06/19 at 17:30; Stop 12/06/19 at 17:59; Status DC Sodium Chloride 1,000 ml @ 1,000 mls/hr 1X ONCE IV Last administered on 12/06/19at 18:03; Start 12/06/19 at 17:30; Stop 12/06/19 at 18:29; Status DC Insulin Human Regular (HumuLIN R VIAL) 10 unit 1X ONCE IV Last administered on 12/06/19at 17:42; Start 12/06/19 at 17:30; Stop 12/06/19 at 17:31; Status DC Hydromorphone HCl (Dilaudid) 0.5 mg PRN Q1HR PRN IV/SQ PAIN GREATER THAN 3/10 Last administered on 12/06/19at 21:50; Start 12/06/19 at 17:30; Stop 12/06/19 at 21:50; Status DC Insulin Human Regular 100 ml @ 0 mls/hr 1X ONCE IV Last administered on 11/14 05/02at 19:41; Start 12/06/19 at 18:00; Stop 12/06/19 at 18:01; Status DC Sodium Bicarbonate (Sodium Bicarb Adult 8.4% Syr) 100 meq 1X ONCE IV Last administered on 12/06/19at 18:49; Start 12/06/19 at 18:00; Stop 12/06/19 at 18:01; Status DC Iohexol (Omnipaque 300 Mg/ml) 60 ml 1X ONCE IV Last administered on 12/06/19at 18:28; Start 12/06/19 at 18:30; Stop 12/06/19 at 18:31; Status DC Info (CONTRAST GIVEN -- Rx MONITORING) 1 each PRN DAILY PRN MC SEE COMMENTS; Start 12/06/19 at 18:15; Stop 12/08/19 at 18:14 Levofloxacin/ Dextrose (Levaquin Per Pharmacy) 1 each PRN DAILY PRN MC SEE COMMENTS; Start 12/06/19 at 19:30 Levofloxacin/ Dextrose 100 ml @ 100 mls/hr Q24H IV Last administered on 12/07/19at 05:05; Start 12/07/19 at 06:00 Sodium Chloride 1,000 ml @ 2,190 mls/hr Q28M IV ; Start 12/06/19 at 20:00; Stop 12/06/19 at 21:00; Status DC Sodium Chloride 500 ml @ 1,000 mls/hr PRN Q30MIN PRN IV SEE COMMENTS; Start 12/06/19 at 21:00 Vancomycin HCl (Vanco Per Pharmacy) 1 each PRN DAILY PRN MC SEE COMMENTS Last administered on 12/07/19at 01:45; Start 12/06/19 at 19:30 Sodium Chloride (Normal Saline Flush) 3 ml QSHIFT PRN IV AFTER MEDS AND BLOOD DRAWS; Start 12/06/19 at 19:30 Sodium Chloride 1,000 ml @ 100 mls/hr Q10H IV Last administered on 12/07/19at 09:06; Start 12/06/19 at 22:00 Ondansetron HCl (Zofran) 4 mg PRN Q4HRS PRN IV NAUSEA/VOMITING; Start 12/06/19 at 19:30 Acetaminophen (Tylenol) 650 mg PRN Q4HRS PRN PO TEMP OVER 100.4F OR MILD PAIN; Start 12/06/19 at 19:30 Clonidine HCl (Catapres) 0.1 mg PRN Q6HRS PRN PO SBP>160 OR DBP>90; Start 12/06/19 at 19:30 Sodium Monofluorophosphate (Fleet Adult) 133 ml PRN DAILY PRN ND CONSTIPATION; Start 12/06/19 at 19:30 Docusate Sodium (Colace) 100 mg PRN BID PRN PO HARD STOOLS; Start 12/06/19 at 19:30 Albuterol Sulfate (Ventolin Neb Soln) 2.5 mg PRN Q4HRS PRN NEB SHORTNESS OF BREATH; Start 12/06/19 at 19:30 Guaifenesin (Robitussin) 200 mg PRN Q4HRS PRN PO COUGH; Start 12/06/19 at 19:30 Lorazepam (Ativan) 0.5 mg PRN Q4HRS PRN PO ANXIETY / AGITATION; Start 12/06/19 at 19:30 Enoxaparin Sodium (Lovenox 40mg Syringe) 40 mg Q24H SQ Last administered on 12/07/19at 00:23; Start 12/06/19 at 21:00 Vancomycin HCl 2 gm/Sodium Chloride 500 ml @ 250 mls/hr 1X ONCE IV Last administered on 12/06/19at 21:19; Start 12/06/19 at 20:00; Stop 12/06/19 at 21:59; Status DC Hydromorphone HCl (Dilaudid) 1 mg PRN Q3HRS PRN IVP SEVERE PAIN 7-10 Last administered on 12/07/19at 04:51; Start 12/06/19 at 21:45 Vancomycin HCl 1.75 gm/Sodium Chloride 500 ml @ 250 mls/hr Q12H IV ; Start 12/07/19 at 09:00 Vancomycin HCl (Vancomycin Trough Level) 1 each 1X ONCE MC ; Start 12/08/19 at 08:30; Stop 12/08/19 at 08:31 Insulin Human Lispro (HumaLOG) 0-5 UNITS Q4HRS SQ Last administered on 12/07/19at 09:05; Start 12/07/19 at 04:00 Dextrose (Dextrose 50%-Water Syringe) 12.5 gm PRN Q15MIN PRN IV SEE COMMENTS; Start 12/07/19 at 02:15 Influenza Virus Vaccine Quadrival (Fluzone Quad Syringe) 0.5 ml ONCE ONCE VAX IM ; Start 12/07/19 at 09:00; Stop 12/07/19 at 09:01; Status DC Vitals/I & O Vital Sign - Last 24 Hours 12/06/19 12/06/19 12/06/19 12/06/19 16:40 17:14 17:40 17:44 Temp 97.7 97.7 Pulse 141 140 126 Resp 28 B/P (MAP) 167/93 (117) 158/83 (108) 169/92 (117) Pulse Ox 97 98 98 O2 Delivery Room Air Room Air Room Air Room Air 12/06/19 12/06/19 12/06/19 12/06/19 18:14 19:00 19:30 20:06 Pulse 128 122 118 114 Resp 28 22 22 B/P (MAP) 183/87 (119) 172/96 (121) 153/93 (113) 128/88 (101) Pulse Ox 98 98 98 98 O2 Delivery Room Air Room Air Room Air Room Air 10/23/12/06/19 12/06/19 12/06/19 21:00 21:36 22:06 23:00 Temp 98.0 98.0 Pulse 114 105 107 100 Resp 22 18 18 18 B/P (MAP) 142/84 (103) 119/74 (89) 110/67 (81) 108/74 (85) Pulse Ox 98 99 99 98 O2 Delivery Room Air Room Air Room Air Room Air 12/07/19 12/07/19 12/07/19 12/07/19 00:00 00:08 00:25 01:00 Pulse 98 88 Resp 18 18 B/P (MAP) 101/66 (78) 112/71 (85) Pulse Ox 96 99 96 O2 Delivery Room Air Room Air 12/07/19 12/07/19 12/07/19 12/07/19 01:11 01:57 03:00 03:59 Pulse 92 98 Resp 18 18 B/P (MAP) 99/65 (76) 109/63 (78) Pulse Ox 96 98 O2 Delivery Room Air Room Air Room Air 12/07/19 12/07/19 12/07/19 12/07/19 04:00 04:51 05:00 05:30 Temp 98.5 98.5 Pulse 107 106 Resp 18 19 18 17 B/P (MAP) 104/61 (75) 116/64 (81) Pulse Ox 99 99 98 99 O2 Delivery Room Air Room Air Room Air Room Air 12/07/19 12/07/19 12/07/19 06:00 07:00 07:46 Temp 97.9 97.9 Pulse 107 105 Resp 19 20 B/P (MAP) 109/68 (82) 110/69 (83) Pulse Ox 94 93 O2 Delivery Room Air Room Air Room Air Intake and Output 12/06/19 12/06/19 12/07/19 15:00 23:00 07:00 Intake Total 3004 ml 1320 ml Output Total 1350 ml 600 ml Balance 1654 ml 720 ml Justicifation of Admission Dx: Justifications for Admission: Justification of Admission Dx: Yes DKA: GAVI LINDQUIST MD Dec 07, 2019 09:29
[2019-12-07] MEDS ORDERED: POTASSIUM CHLORIDE 20 MEQ TABLET.ER. PO ONE (10:00)
[2019-12-07] MEDS: HYDROCORTISONE 1% LOTION BOTTLE. TP SCH ×3 (10:32→21:25)
[2019-12-07] MEDS: INSULIN GLARGINE SYRINGE. SQ SCH (10:39)
[2019-12-07] MEDS: PIPERACILLIN/TAZOBACTAM 3.375 GM in IV NORMAL SALINE 50ML 50 ML IV SCH ×3 (11:53→23:43)
--- NOTE | 2019-12-07 11:54 | CONS ---
DATE OF CONSULTATION: 12/07/2019 REQUESTING PHYSICIAN: Walt Drew MD REASON FOR CONSULTATION: Scrotal cellulitis. HISTORY OF PRESENT ILLNESS: This is a 49-year-old gentleman, who has a history of diabetes, who came in the ER with some scrotal swelling, pain, had vomited at home and some nausea. The patient was found to have scrotal cellulitis. Lactic acid 3.3. His sugar was high, bicarbonate was down to 8, and the white count of 28,000. The patient was given a slew of things, like ciprofloxacin, clindamycin, vancomycin, Peptizole, etc. The patient is alert, awake, stable. The patient is infected. He required IV insulin to control his metabolic acidosis from DKA and then he is in the process of transfer out of the ICU. The patient denies any other complaints right now. PAST MEDICAL HISTORY: Positive for diabetes mellitus, obesity, hypertension. He has had testicular surgery done at age 6, inguinal hernia, hypothyroidism. SOCIAL HISTORY: Negative for smoking, alcohol use or drug use. ALLERGIES: HE IS LISTED ALLERGIC TO PENICILLIN WHEN HE SAYS HE HAD RASH AT 4 YEARS OF AGE, but he has taken amoxicillin multiple times without any problem. REVIEW OF SYSTEMS: As per HPI, all other systems reviewed are negative. PHYSICAL EXAMINATION: GENERAL: Alert, oriented gentleman, not in any distress. VITAL SIGNS: Stable, afebrile. HEENT: NAD. NECK: Supple. No JVP, no lymphadenopathy. LUNGS: Clear. HEART: S1, S2 regular. ABDOMEN: Benign. EXTREMITIES: No edema or cyanosis. SKIN: Unremarkable. Scrotum is swollen, red and tender and there is some skin breakdown on the posterior aspect of the scrotum. NEUROLOGIC: The patient is alert, awake and appropriate. No focal neurologic deficit. LABORATORY DATA: White count is 28,000. BUN and creatinine is normal. Lactic acid as I mentioned was 3.3, which has improved. Blood sugar is up into the 500's. Bicarb from 8 has improved to 16, down to 12. Urinalysis unremarkable. Abdominal CT reviewed. IMPRESSION: 1. Scrotal cellulitis. 2. Diabetes with poor control. 3. Metabolic acidosis/diabetic ketoacidosis. 4. Obesity. 5. Diabetes. RECOMMENDATIONS: We will continue vancomycin, discontinue Levaquin, start Zosyn. Supportive care and we will continue to follow. Thank you very much, Dr. Drew, for giving me the opportunity to participate in this patient's care. ROSMERY JEROME MD DR: YOLANDA/pedro pablo JOB#: [id number] / [id number]
--- NOTE | 2019-12-07 14:07 | NUR ---
Pt transferred to room 516 by wheelchair at approx 1400. Belongings sent with pt at time of transfer.
[2019-12-07] MEDS: LACTOBACILLUS RHAMNOSUS GG 1 CAPSULE. PO SCH (21:24)
[2019-12-08 03:00] VITALS: BP 117/67
[2019-12-08] MEDS: INSULIN LISPRO 300 UNITS/3 ML VIAL. SQ SCH ×10 (04:00→23:41)
[2019-12-08] MEDS: PIPERACILLIN/TAZOBACTAM 3.375 GM in IV NORMAL SALINE 50ML 50 ML IV SCH ×4 (04:56→23:42)
[2019-12-08] MEDS: IV NORMAL SALINE 1000ML BAG 1,000 ML IV SCH ×3 (04:56→22:37)
[2019-12-08] MEDS: HYDROmorphone 2 MG/ML VIAL IVP PRN ×2 (05:02→14:55)
--- NOTE | 2019-12-08 07:36 | PDOC ---
Infectious Disease Note Subjective Subjective Feeling better ROS ROS No nausea vomiting diarrhea chest pain shortness of breath Vital Sign Vital Signs Vital Signs Date Time Temp Pulse Resp B/P (MAP) Pulse Ox O2 Delivery O2 Flow Rate FiO2 12/08/19 05:33 Room Air 12/08/19 03:00 98.5 98 19 117/67 (84) 98 98.5 Physical Exam PHYSICAL EXAM GENERAL: Alert, oriented gentleman, not in any distress. VITAL SIGNS: Stable, afebrile. HEENT: NAD. NECK: Supple. No JVP, no lymphadenopathy. LUNGS: Clear. HEART: S1, S2 regular. ABDOMEN: Benign. EXTREMITIES: No edema or cyanosis. SKIN: Unremarkable. Scrotum is swollen, red and tender and there is some skin breakdown on the posterior aspect of the scrotum. NEUROLOGIC: The patient is alert, awake and appropriate. No focal neurologic deficit. Labs Lab Laboratory Tests Test 12/07/19 10:53 12/07/19 16:43 12/07/19 21:16 12/08/19 00:57 Glucose (Fingerstick) 210 mg/dL (70-99) 247 mg/dL (70-99) 194 mg/dL (70-99) 232 mg/dL (70-99) Test 12/08/19 04:19 Glucose (Fingerstick) 236 mg/dL (70-99) Micro Microbiology 12/06/19 Blood Culture - Preliminary, Resulted NO GROWTH AFTER 1 DAY Objective Assessment IMPRESSION: 1. Scrotal cellulitis. 2. Diabetes with poor control. 3. Metabolic acidosis/diabetic ketoacidosis. 4. Obesity. 5. Diabetes. Plan Plan of Care Continue antibiotics Supportive care ROSMERY JEROME MD Dec 08, 2019 07:36
[2019-12-08 07:59] VITALS: BP 110/69
[2019-12-08] MEDS: INSULIN GLARGINE SYRINGE. SQ SCH (08:59)
[2019-12-08 09:00] LABS: BASO % 0 % (0-3); EOS % 0 % (0-3); HEMATOCRIT 36.1 % (39.0-53.0); LYMPH # 0.9 x10^3/uL (1.0-4.8); LYMPH % 6 % (24-48); MEAN CORPUSCULAR HEMOGLOBIN 28 pg (25-35); MEAN CORPUSCULAR HGB CONC 33 g/dL (31-37); MEAN CORPUSCULAR VOLUME 84 fL (79-100); MONO # 1.3 x10^3/uL (0.0-1.1); MONO % 8 % (0-9); NEUT # 13.4 x10^3/uL (1.8-7.7); NEUT % 86 % (31-73); PLATELET COUNT 301 x10^3/uL (140-400); RED BLOOD COUNT 4.31 x10^6/uL (4.30-5.70); RED CELL DISTRIBUTION WIDTH 13.3 % (11.5-14.5); WHITE BLOOD COUNT 15.6 x10^3/uL (4.0-11.0)
[2019-12-08] MEDS: LACTOBACILLUS RHAMNOSUS GG 1 CAPSULE. PO SCH ×2 (09:03→20:36)
[2019-12-08] MEDS: HYDROCORTISONE 1% LOTION BOTTLE. TP SCH ×3 (09:04→20:39)
[2019-12-08 09:17] LABS: VANC TR 8.9 mcg/mL (10.0-20.0)
[2019-12-08 09:18] LABS: ALBUMIN 2.3 g/dL (3.4-5.0); ALBUMIN/GLOBULIN RATIO 0.7 (1.0-1.7); CALCIUM 8.1 mg/dL (8.5-10.1); CREATININE 0.7 mg/dL (0.7-1.3); GFR 119.9; POTASSIUM 4.2 mmol/L (3.5-5.1); TOTAL BILIRUBIN 0.6 mg/dL (0.2-1.0); TOTAL PROTEIN 5.7 g/dL (6.4-8.2)
[2019-12-08] MEDS: VANCOMYCIN 1.75 GM in IV NORMAL SALINE 500ML BAG 500 ML IV SCH (09:50)
[2019-12-08] MEDS: VANCOMYCIN PER PHARMACY MC PRN (10:13)
--- NOTE | 2019-12-08 10:13 | NUR ---
Pharmacy Vancomycin Dosing Note S: Consulted to monitor and dose vancomycin started 12/06/19. O: MIRA OLIVER is a 49 year old M with cellulitis. Other Antibiotics: ZOSYN 3.375G IV Q6HRS LABS: Last BUN: 10 Last Creatinine: 0.7 Creatinine Clearance: > 100 mL/min Last WBC: 15.6 Last Procalcitonin: 0.29 Tmax (past 24 hours): 98.5 Microbiology: BLOOD CX (12/05): NGTD I/O: 4068/1376 Drug Levels: Last Trough level: 8.9 on 12/08/19 at 0830 Last dose given 12/07/19 at 2131 Vancomycin Dosing: Dosing Weight: Actual Target Trough: 10-20 A: Patient is receiving vancomycin 1750 mg IV q12hrs. A trough of 8.9 mcg/ml is below goal range. Patient's SCr is 0.7 with an eCrCl of > 100 ml/min. Due to slightly low trough and improving renal function, will increase dose: P: 1. Change to Vancomycin 2000 mg IV q12h 2. Follow up trough in 5 - 7 days if needed 3. Pharmacy will continue to monitor, follow and adjust therapy as needed. MARCELLO DUPREE [facility], 12/08/19 [id number]
[2019-12-08 11:59] VITALS: BP 116/69
[2019-12-08 15:59] VITALS: BP 118/72
[2019-12-08] MEDS ORDERED: IV DEXTROSE 5% - 0.9 % NACL 1,000 ML IV SCH (16:30)
[2019-12-08] MEDS: NACL IV SCH ×2 (17:17→23:42)
[2019-12-08] MEDS: DEXTROSE IV SCH ×2 (17:17→23:42)
[2019-12-08] MEDS: SODIUM BICARBONATE IV SCH ×2 (17:17→23:42)
--- NOTE | 2019-12-08 17:35 | PDOC ---
[employer] PROGRESS NOTE Date of Service DOS: DATE: 12/08/19 TIME: 17:31 Chief Complaint Chief Complaint DKA Skin thickening at the scrotum with a small left-sided hydrocele. c/w cellulitis No intra-abdominal abnormality identified. obese, BMI 36 sepsis UNCONTROLLED DIABETES 2, poor compliance 2 years, had no insurance until recently ION due to vasomotor nephropathy Lactic acidosis Severe protein malnutrition Continue Accu-Cheks every 4 Continue D5 NS at 200 cc/h BMP every 6 hours Continue Lantus and lispro and R ISS Continue IV empiric antibiotics Appreciate ID recommendations Pending HbA1c History of Present Illness History of Present Illness 12/08/2019 No acute events overnight. Patient's scrotal swelling has decreased and patient does not voice any pain at this time. Patient's chart, labs, images were reviewed and discussed with RN Vitals/I&O Vitals/I&O: Vital Signs Date Time Temp Pulse Resp B/P (MAP) Pulse Ox O2 Delivery O2 Flow Rate FiO2 12/08/19 11:59 97.8 98 36 116/69 (85) 98 Room Air 97.8 I & O 12/07/19 12/07/19 12/08/19 15:00 23:00 07:00 Intake Total 3918.5 ml 150 ml Output Total 975 ml 400 ml 1 ml Balance 2943.5 ml -400 ml 149 ml Physical Exam Physical Exam: GENERAL: Alert, oriented gentleman, not in any distress. VITAL SIGNS: Stable, afebrile. HEENT: NAD. NECK: Supple. No JVP, no lymphadenopathy. LUNGS: Clear. HEART: S1, S2 regular. ABDOMEN: Benign. EXTREMITIES: No edema or cyanosis. SKIN: Unremarkable. Scrotum is swollen, red and tender and there is some skin breakdown on the posterior aspect of the scrotum. NEUROLOGIC: The patient is alert, awake and appropriate. No focal neurologic deficit. General: Alert, Oriented X3, Cooperative, mild distress Abdomen: Normal bowel sounds, Soft, No tenderness Extremities: No clubbing, No cyanosis Skin: Other (Scrotal edema and erythema. There is an eschar formation in the posterior scrotal region. No crepitus or bleeding seen.) Labs Labs: Laboratory Tests Test 12/07/19 21:16 12/08/19 00:57 12/08/19 04:19 12/08/19 07:51 Glucose (Fingerstick) 194 mg/dL (70-99) 232 mg/dL (70-99) 236 mg/dL (70-99) 218 mg/dL (70-99) Test 12/08/19 08:31 12/08/19 11:27 12/08/19 16:03 White Blood Count 15.6 x10^3/uL (4.0-11.0) Red Blood Count 4.31 x10^6/uL (4.30-5.70) Hemoglobin 12.0 g/dL (13.0-17.5) Hematocrit 36.1 % (39.0-53.0) Mean Corpuscular Volume 84 fL (79-100) Mean Corpuscular Hemoglobin 28 pg (25-35) Mean Corpuscular Hemoglobin Concent 33 g/dL (31-37) Red Cell Distribution Width 13.3 % (11.5-14.5) Platelet Count 301 x10^3/uL (140-400) Neutrophils (%) (Auto) 86 % (31-73) Lymphocytes (%) (Auto) 6 % (24-48) Monocytes (%) (Auto) 8 % (0-9) Eosinophils (%) (Auto) 0 % (0-3) Basophils (%) (Auto) 0 % (0-3) Neutrophils # (Auto) 13.4 x10^3/uL (1.8-7.7) Lymphocytes # (Auto) 0.9 x10^3/uL (1.0-4.8) Monocytes # (Auto) 1.3 x10^3/uL (0.0-1.1) Eosinophils # (Auto) 0.0 x10^3/uL (0.0-0.7) Basophils # (Auto) 0.0 x10^3/uL (0.0-0.2) Sodium Level 136 mmol/L (136-145) Potassium Level 4.2 mmol/L (3.5-5.1) Chloride Level 102 mmol/L (98-107) Carbon Dioxide Level 16 mmol/L (21-32) Anion Gap 18 (6-14) Blood Urea Nitrogen 10 mg/dL (8-26) Creatinine 0.7 mg/dL (0.7-1.3) Estimated GFR (Cockcroft-Gault) 119.9 BUN/Creatinine Ratio 14 (6-20) Glucose Level 252 mg/dL (70-99) Calcium Level 8.1 mg/dL (8.5-10.1) Total Bilirubin 0.6 mg/dL (0.2-1.0) Aspartate Amino Transf (AST/SGOT) 11 U/L (15-37) Alanine Aminotransferase (ALT/SGPT) 11 U/L (16-63) Alkaline Phosphatase 56 U/L (46-116) RF-Lkp-H-Type Natriuretic Peptide 1056 pg/mL (0-124) Total Protein 5.7 g/dL (6.4-8.2) Albumin 2.3 g/dL (3.4-5.0) Albumin/Globulin Ratio 0.7 (1.0-1.7) Vancomycin Level Trough 8.9 mcg/mL (10.0-20.0) Vancomycin Last Dose Date 12/07/19 Vancomycin Last Dose Time 2200 Glucose (Fingerstick) 215 mg/dL (70-99) 152 mg/dL (70-99) Assessment and Plan Assessmemt and Plan Problems Medical Problems: (1) Cellulitis, scrotum Status: Acute (2) Diabetic ketoacidosis Status: Acute (3) Severe sepsis Status: Acute Comment Review of Relevant I have reviewed the following items brandin (where applicable) has been applied. Medications: Current Medications Medications (Trade) Dose Ordered Sig/Stephanie Route PRN Reason Start Time Stop Time Status Last Admin Dose Admin Lactobacillus Rhamnosus (Culturelle) 1 cap BID PO 12/07/19 21:00 12/08/19 09:03 Sodium Bicarbonate 50 meq/Dextrose/ Sodium Chloride 1,050 ml @ 200 mls/hr Q5H15M IV 12/08/19 17:00 12/08/19 17:17 Justifications for Admission Other Justification DANG RAMSAY MD Dec 08, 2019 17:35
--- NOTE | 2019-12-08 17:36 | NUR ---
Pt's "wound" on coccyx is intact and just a little red. Put barrier cream on and then covered with a new dressing. Pt is not complaining of pain from coccyx area. Did not take pictures since everything was intact.
--- NOTE | 2019-12-08 17:39 | NUR ---
incorrect last note about wound... wrong pt
[2019-12-08 19:00] VITALS: BP 125/71
[2019-12-08] MEDS: VANCOMYCIN 2 GM in IV NORMAL SALINE 500ML BAG 500 ML IV SCH (20:35)
[2019-12-08] MEDS: ENOXAPARIN 40 MG/0.4 ML SYRINGE. SQ SCH (20:36)
[2019-12-08 23:00] VITALS: BP 128/71
[2019-12-09] MEDS: SODIUM BICARBONATE IV SCH ×4 (00:39→20:32)
[2019-12-09] MEDS: DEXTROSE IV SCH ×4 (00:39→20:32)
[2019-12-09] MEDS: NACL IV SCH ×4 (00:39→20:32)
[2019-12-09] MEDS: HYDROmorphone 2 MG/ML VIAL IVP PRN ×2 (01:08→14:01)
[2019-12-09 03:00] VITALS: BP 128/80
[2019-12-09 03:10] LABS: HEMOGLOBIN A1C 13.5 % (4.8-5.6)
[2019-12-09] MEDS: INSULIN LISPRO 300 UNITS/3 ML VIAL. SQ SCH ×8 (04:32→20:30)
[2019-12-09] MEDS: PIPERACILLIN/TAZOBACTAM 3.375 GM in IV NORMAL SALINE 50ML 50 ML IV SCH ×3 (05:10→17:44)
[2019-12-09 07:00] VITALS: BP 133/75
--- NOTE | 2019-12-09 08:25 | PDOC ---
Infectious Disease Note Subjective: Subjective Feeling better Vital Signs: Vital Signs Vital Signs Date Time Temp Pulse Resp B/P (MAP) Pulse Ox O2 Delivery O2 Flow Rate FiO2 12/09/19 03:00 97.9 92 20 128/80 (96) 94 Room Air 97.9 Physical Exam: PHYSICAL EXAM GENERAL: Alert, oriented gentleman, not in any distress. HEENT: Anicteric oral mucosa moist NECK: Supple. No JVP, no lymphadenopathy. LUNGS: Clear. HEART: S1, S2 regular. ABDOMEN: Benign. EXTREMITIES: No edema or cyanosis. SKIN: Unremarkable. Scrotum is swollen, red and tender and there is some skin breakdown on the posterior aspect of the scrotum. NEUROLOGIC: alert, awake and appropriate. No focal neurologic deficit. Medications: Inpatient Meds: Current Medications Medications (Trade) Dose Ordered Sig/Stephanie Start Time Stop Time Status Last Admin Dose Admin Acetaminophen (Tylenol) 650 mg PRN Q4HRS PRN 12/06/19 19:30 Albuterol Sulfate (Ventolin Neb Soln) 2.5 mg PRN Q4HRS PRN 12/06/19 19:30 Ciprofloxacin/ Dextrose 200 ml @ 200 mls/hr 1X ONCE 12/06/19 17:30 12/06/19 18:29 DC 12/06/19 18:09 200 MLS/HR Clindamycin Phosphate 50 ml @ 100 mls/hr 1X ONCE 12/06/19 17:30 12/06/19 17:59 DC 12/06/19 17:50 100 MLS/HR Clonidine HCl (Catapres) 0.1 mg PRN Q6HRS PRN 12/06/19 19:30 Dextrose (Dextrose 50%-Water Syringe) 12.5 gm PRN Q15MIN PRN 12/07/19 02:15 Dextrose/Sodium Chloride 1,000 ml @ 200 mls/hr Q5H 12/08/19 16:30 12/08/19 16:43 DC Docusate Sodium (Colace) 100 mg PRN BID PRN 12/06/19 19:30 Enoxaparin Sodium (Lovenox 40mg Syringe) 40 mg Q24H 12/06/19 21:00 12/08/19 20:36 40 MG Guaifenesin (Robitussin) 200 mg PRN Q4HRS PRN 12/06/19 19:30 Hydrocortisone (Cortizone-10) 1 cali TID 12/07/19 10:00 12/08/19 20:39 1 CALI Hydromorphone HCl (Dilaudid) 1 mg PRN Q3HRS PRN 12/06/19 21:45 12/09/19 01:08 1 MG Influenza Virus Vaccine Quadrival (Fluzone Quad Syringe) 0.5 ml ONCE ONCE 12/07/19 09:00 12/07/19 09:01 DC 12/07/19 09:26 0.5 ML Info (CONTRAST GIVEN -- Rx MONITORING) 1 each PRN DAILY PRN 12/06/19 18:15 12/08/19 18:14 DC Insulin Glargine (Lantus Syringe) 12 unit QAM 12/07/19 10:00 12/08/19 08:59 12 UNIT Insulin Human Lispro (HumaLOG) 8 units TIDWMEALS 12/07/19 12:00 12/08/19 12:32 8 UNITS Insulin Human Regular 100 ml @ 0 mls/hr 1X ONCE 12/06/19 18:00 12/06/19 18:01 DC 12/06/19 19:41 7.8 MLS/HR Insulin Human Regular (HumuLIN R VIAL) 10 unit 1X ONCE 12/06/19 17:30 12/06/19 17:31 DC 12/06/19 17:42 10 UNIT Iohexol (Omnipaque 300 Mg/ml) 60 ml 1X ONCE 12/06/19 18:30 12/06/19 18:31 DC 12/06/19 18:28 60 ML Lactobacillus Rhamnosus (Culturelle) 1 cap BID 12/07/19 21:00 12/08/19 20:36 1 CAP Levofloxacin/ Dextrose 100 ml @ 100 mls/hr Q24H 12/07/19 06:00 12/07/19 11:26 DC 12/07/19 05:05 100 MLS/HR Levofloxacin/ Dextrose (Levaquin Per Pharmacy) 1 each PRN DAILY PRN 12/06/19 19:30 Cancel Lorazepam (Ativan) 0.5 mg PRN Q4HRS PRN 12/06/19 19:30 Ondansetron HCl (Zofran) 4 mg PRN Q4HRS PRN 12/06/19 19:30 Piperacillin Sod/ Tazobactam Sod 3.375 gm/Sodium Chloride 50 ml @ 100 mls/hr Q6HRS 12/07/19 12:00 12/09/19 05:10 100 MLS/HR Piperacillin Sod/ Tazobactam Sod 4.5 gm/Sodium Chloride 100 ml @ 200 mls/hr 1X ONCE 12/06/19 16:45 12/06/19 17:22 DC Potassium Chloride (Klor-Con) 40 meq 1X ONCE 12/07/19 10:00 12/07/19 10:02 DC 12/07/19 09:36 40 MEQ Sodium Bicarbonate 50 meq/Dextrose/ Sodium Chloride 1,050 ml @ 200 mls/hr Q5H15M 12/08/19 17:00 12/08/19 23:42 200 MLS/HR Sodium Monofluorophosphate (Fleet Adult) 133 ml PRN DAILY PRN 12/06/19 19:30 Sodium Bicarbonate (Sodium Bicarb Adult 8.4% Syr) 100 meq 1X ONCE 12/06/19 18:00 12/06/19 18:01 DC 12/06/19 18:49 100 MEQ Sodium Chloride 1,000 ml @ 1,000 mls/hr 1X ONCE 12/07/19 09:15 12/07/19 10:14 DC 12/07/19 09:35 1,000 MLS/HR Sodium Chloride (Normal Saline Flush) 3 ml QSHIFT PRN 12/06/19 19:30 Vancomycin HCl (Vanco Per Pharmacy) 1 each PRN DAILY PRN 12/06/19 19:30 12/08/19 10:13 1 EACH Vancomycin HCl (Vancomycin Trough Level) 1 each 1X ONCE 12/08/19 08:30 12/08/19 08:31 DC 12/08/19 08:31 1 EACH Vancomycin HCl 1.75 gm/Sodium Chloride 500 ml @ 250 mls/hr Q12H 12/07/19 09:00 12/08/19 10:00 DC 12/08/19 09:50 250 MLS/HR Vancomycin HCl 2 gm/Sodium Chloride 500 ml @ 250 mls/hr Q12H 12/08/19 21:00 12/08/19 20:35 250 MLS/HR Zinc Acetate/ Diphenhydramine (Benadryl Topical) 1 cali PRN Q4HRS PRN 12/07/19 09:30 12/07/19 21:24 1 CALI Labs: Lab Laboratory Tests Test 12/08/19 08:31 12/08/19 11:27 12/08/19 16:03 12/08/19 20:10 White Blood Count 15.6 x10^3/uL (4.0-11.0) Red Blood Count 4.31 x10^6/uL (4.30-5.70) Hemoglobin 12.0 g/dL (13.0-17.5) Hematocrit 36.1 % (39.0-53.0) Mean Corpuscular Volume 84 fL (79-100) Mean Corpuscular Hemoglobin 28 pg (25-35) Mean Corpuscular Hemoglobin Concent 33 g/dL (31-37) Red Cell Distribution Width 13.3 % (11.5-14.5) Platelet Count 301 x10^3/uL (140-400) Neutrophils (%) (Auto) 86 % (31-73) Lymphocytes (%) (Auto) 6 % (24-48) Monocytes (%) (Auto) 8 % (0-9) Eosinophils (%) (Auto) 0 % (0-3) Basophils (%) (Auto) 0 % (0-3) Neutrophils # (Auto) 13.4 x10^3/uL (1.8-7.7) Lymphocytes # (Auto) 0.9 x10^3/uL (1.0-4.8) Monocytes # (Auto) 1.3 x10^3/uL (0.0-1.1) Eosinophils # (Auto) 0.0 x10^3/uL (0.0-0.7) Basophils # (Auto) 0.0 x10^3/uL (0.0-0.2) Sodium Level 136 mmol/L (136-145) Potassium Level 4.2 mmol/L (3.5-5.1) Chloride Level 102 mmol/L (98-107) Carbon Dioxide Level 16 mmol/L (21-32) Anion Gap 18 (6-14) Blood Urea Nitrogen 10 mg/dL (8-26) Creatinine 0.7 mg/dL (0.7-1.3) Estimated GFR (Cockcroft-Gault) 119.9 BUN/Creatinine Ratio 14 (6-20) Glucose Level 252 mg/dL (70-99) Calcium Level 8.1 mg/dL (8.5-10.1) Total Bilirubin 0.6 mg/dL (0.2-1.0) Aspartate Amino Transf (AST/SGOT) 11 U/L (15-37) Alanine Aminotransferase (ALT/SGPT) 11 U/L (16-63) Alkaline Phosphatase 56 U/L (46-116) UW-Kvb-Y-Type Natriuretic Peptide 1056 pg/mL (0-124) Total Protein 5.7 g/dL (6.4-8.2) Albumin 2.3 g/dL (3.4-5.0) Albumin/Globulin Ratio 0.7 (1.0-1.7) Vancomycin Level Trough 8.9 mcg/mL (10.0-20.0) Vancomycin Last Dose Date 12/07/19 Vancomycin Last Dose Time 2200 Glucose (Fingerstick) 215 mg/dL (70-99) 152 mg/dL (70-99) 256 mg/dL (70-99) Test 12/08/19 23:38 12/09/19 00:37 12/09/19 04:22 12/09/19 07:52 Glucose (Fingerstick) 222 mg/dL (70-99) 243 mg/dL (70-99) 325 mg/dL (70-99) BS-Sxk-E-Type Natriuretic Peptide 1238 pg/mL (0-124) Objective: Assessment: 1. Scrotal cellulitis. 2. Diabetes with poor control. 3. Metabolic acidosis/diabetic ketoacidosis. 4. Obesity. 5. Diabetes. Plan: Plan of Care Continue vanc and zosyn Monitor renal functions closely Adjust dose of vancomycin per pharmacy protocol Local care Supportive care ZACHARY JEROME MD Dec 09, 2019 08:24
--- NOTE | 2019-12-09 08:59 | PDOC ---
[employer] PROGRESS NOTE Date of Service DOS: DATE: 12/09/19 TIME: 08:59 Chief Complaint Chief Complaint DKA Scrotal cellulitis Obese, BMI 36 Sepsis UNCONTROLLED DIABETES 2, poor compliance 2 years, had no insurance until recently - A1c 13.5 ION due to vasomotor nephropathy Lactic acidosis Severe protein malnutrition Continue Lantus and lispro and R ISS Continue IV empiric antibiotics Appreciate ID recommendations History of Present Illness History of Present Illness Mr Metcalf is a is a 49yo M w/ PMHx diabetes, obesity, HTN, hypothyroidism who came in the ER with some scrotal swelling, pain, had vomited at home and some nausea. The patient was found to have scrotal cellulitis, sepsis, and DKA, initially admitted to ICU. 12/06: ID consult 12/07: No acute events overnight. Patient's scrotal swelling has decreased and patient does not voice any pain at this time. Patient's chart, labs, images were reviewed and discussed with RN Overnight afebrile. This morning spilled his urine, lost on IV had a bowel move ment on himself in bed. Scrotal swelling significantly improved. Glucose 325 this morning. No chest pain or shortness of breath. Vitals/I&O Vitals/I&O: Vital Signs Date Time Temp Pulse Resp B/P (MAP) Pulse Ox O2 Delivery O2 Flow Rate FiO2 12/09/19 07:00 97.8 63 18 133/75 (94) 97 Room Air 97.8 I & O 12/08/19 12/08/19 12/09/19 15:00 23:00 07:00 Intake Total 500 ml 1050 ml Output Total 300 ml Balance 200 ml 1050 ml Physical Exam Physical Exam: GENERAL: Alert, oriented gentleman, not in any distress. HEENT: Anicteric oral mucosa moist NECK: Supple. No JVP, no lymphadenopathy. LUNGS: Clear. HEART: S1, S2 regular. ABDOMEN: Benign. EXTREMITIES: No edema or cyanosis. SKIN: Unremarkable. Scrotum is swollen, red and tender and there is some skin breakdown on the posterior aspect of the scrotum. NEUROLOGIC: alert, awake and appropriate. No focal neurologic deficit. General: Alert, Oriented X3, Cooperative, mild distress Abdomen: Normal bowel sounds, Soft, No tenderness Extremities: No clubbing, No cyanosis Skin: Other (Scrotal edema and erythema. There is an eschar formation in the posterior scrotal region. No crepitus or bleeding seen.) Labs Labs: Laboratory Tests Test 12/08/19 11:27 12/08/19 16:03 12/08/19 20:10 12/08/19 23:38 Glucose (Fingerstick) 215 mg/dL (70-99) 152 mg/dL (70-99) 256 mg/dL (70-99) 222 mg/dL (70-99) Test 12/09/19 00:37 12/09/19 04:22 12/09/19 07:52 IX-Fft-G-Type Natriuretic Peptide 1238 pg/mL (0-124) Glucose (Fingerstick) 243 mg/dL (70-99) 325 mg/dL (70-99) Assessment and Plan Assessmemt and Plan Problems Medical Problems: (1) Cellulitis, scrotum Status: Acute (2) Diabetic ketoacidosis Status: Acute (3) Severe sepsis Status: Acute Comment Review of Relevant I have reviewed the following items brandin (where applicable) has been applied. Medications: Current Medications Medications (Trade) Dose Ordered Sig/Stephanie Route PRN Reason Start Time Stop Time Status Last Admin Dose Admin Vancomycin HCl 2 gm/Sodium Chloride 500 ml @ 250 mls/hr Q12H IV 12/08/19 21:00 12/08/19 20:35 Sodium Bicarbonate 50 meq/Dextrose/ Sodium Chloride 1,050 ml @ 200 mls/hr Q5H15M IV 12/08/19 17:00 12/08/19 23:42 Justifications for Admission Other Justification LAW TEMPLE MD Dec 09, 2019 08:59
[2019-12-09] MEDS: INSULIN GLARGINE SYRINGE. SQ SCH (09:43)
[2019-12-09] MEDS: LACTOBACILLUS RHAMNOSUS GG 1 CAPSULE. PO SCH ×2 (09:47→20:27)
[2019-12-09] MEDS: VANCOMYCIN 2 GM in IV NORMAL SALINE 500ML BAG 500 ML IV SCH ×2 (09:48→20:31)
[2019-12-09] MEDS: HYDROCORTISONE 1% LOTION BOTTLE. TP SCH ×3 (09:54→20:33)
[2019-12-09] MEDS: IV NORMAL SALINE 1000ML BAG 1,000 ML IV SCH ×2 (10:00→20:27)
[2019-12-09 10:53] VITALS: BP 170/84
--- NOTE | 2019-12-09 12:41 | NUR ---
SW following. Discussed with RN, pt from home, room air, ada diet. PT/OT recommending home independent. Pt on vancomycin and zosyn - RN does not anticipate pt will need half-way IV abx at discharge. SW will continue to follow for any discharge needs.
[2019-12-09] MEDS: VANCOMYCIN PER PHARMACY MC PRN (14:17)
[2019-12-09 14:38] VITALS: BP 140/69
[2019-12-09 19:00] VITALS: BP 139/77
[2019-12-09] MEDS: ENOXAPARIN 40 MG/0.4 ML SYRINGE. SQ SCH (20:26)
[2019-12-09 23:00] VITALS: BP 128/71
[2019-12-10] MEDS: SODIUM BICARBONATE IV SCH ×5 (00:21→21:30)
[2019-12-10] MEDS: DEXTROSE IV SCH ×5 (00:21→21:30)
[2019-12-10] MEDS: NACL IV SCH ×5 (00:21→21:30)
[2019-12-10] MEDS: PIPERACILLIN/TAZOBACTAM 3.375 GM in IV NORMAL SALINE 50ML 50 ML IV SCH ×2 (00:21→06:18)
[2019-12-10] MEDS: HYDROmorphone 2 MG/ML VIAL IVP PRN ×3 (00:29→20:52)
[2019-12-10 03:08] VITALS: BP 130/74
[2019-12-10] MEDS: INSULIN LISPRO 300 UNITS/3 ML VIAL. SQ SCH ×9 (04:00→20:00)
[2019-12-10 05:30] LABS: BASO % 0 % (0-3); EOS # 0.2 x10^3/uL (0.0-0.7); EOS % 2 % (0-3); HEMATOCRIT 32.9 % (39.0-53.0); HEMOGLOBIN 11.5 g/dL (13.0-17.5); LYMPH # 1.5 x10^3/uL (1.0-4.8); LYMPH % 13 % (24-48); MEAN CORPUSCULAR HEMOGLOBIN 28 pg (25-35); MEAN CORPUSCULAR HGB CONC 35 g/dL (31-37); MEAN CORPUSCULAR VOLUME 81 fL (79-100); MONO # 1.4 x10^3/uL (0.0-1.1); MONO % 12 % (0-9); NEUT # 8.5 x10^3/uL (1.8-7.7); NEUT % 73 % (31-73); PLATELET COUNT 306 x10^3/uL (140-400); RED BLOOD COUNT 4.07 x10^6/uL (4.30-5.70); RED CELL DISTRIBUTION WIDTH 13.4 % (11.5-14.5); WHITE BLOOD COUNT 11.6 x10^3/uL (4.0-11.0)
[2019-12-10 05:53] LABS: ALBUMIN 1.9 g/dL (3.4-5.0); ALBUMIN/GLOBULIN RATIO 0.6 (1.0-1.7); CALCIUM 7.4 mg/dL (8.5-10.1); CREATININE 0.5 mg/dL (0.7-1.3); GFR 176.7; TOTAL BILIRUBIN 0.3 mg/dL (0.2-1.0); TOTAL PROTEIN 5.1 g/dL (6.4-8.2)
[2019-12-10] MEDS: IV NORMAL SALINE 1000ML BAG 1,000 ML IV SCH ×2 (06:00→11:37)
[2019-12-10 06:03] LABS: POTASSIUM 2.5 mmol/L (3.5-5.1)
[2019-12-10 07:00] VITALS: BP 128/74
[2019-12-10] MEDS: POTASSIUM CHLORIDE 20 MEQ TABLET.ER. PO SCH ×2 (07:04→20:54)
--- NOTE | 2019-12-10 07:56 | PDOC ---
Infectious Disease Note Subjective: Subjective Feeling better Vital Signs: Vital Signs Vital Signs Date Time Temp Pulse Resp B/P (MAP) Pulse Ox O2 Delivery O2 Flow Rate FiO2 12/10/19 07:00 97.8 76 18 128/74 (92) 95 Room Air 97.8 Physical Exam: PHYSICAL EXAM GENERAL: Alert, oriented gentleman, not in any distress. HEENT: Anicteric oral mucosa moist NECK: Supple. No JVP, no lymphadenopathy. LUNGS: Clear. HEART: S1, S2 regular. ABDOMEN: Benign. EXTREMITIES: No edema or cyanosis. SKIN: Unremarkable. Scrotum is swollen, red and tender and there is some skin breakdown on the posterior aspect of the scrotum. NEUROLOGIC: alert, awake and appropriate. No focal neurologic deficit. Medications: Inpatient Meds: Current Medications Medications (Trade) Dose Ordered Sig/Stephanie Start Time Stop Time Status Last Admin Dose Admin Acetaminophen (Tylenol) 650 mg PRN Q4HRS PRN 12/06/19 19:30 Albuterol Sulfate (Ventolin Neb Soln) 2.5 mg PRN Q4HRS PRN 12/06/19 19:30 Ciprofloxacin/ Dextrose 200 ml @ 200 mls/hr 1X ONCE 12/06/19 17:30 12/06/19 18:29 DC 12/06/19 18:09 200 MLS/HR Clindamycin Phosphate 50 ml @ 100 mls/hr 1X ONCE 12/06/19 17:30 12/06/19 17:59 DC 12/06/19 17:50 100 MLS/HR Clonidine HCl (Catapres) 0.1 mg PRN Q6HRS PRN 12/06/19 19:30 Dextrose (Dextrose 50%-Water Syringe) 12.5 gm PRN Q15MIN PRN 12/07/19 02:15 Dextrose/Sodium Chloride 1,000 ml @ 200 mls/hr Q5H 12/08/19 16:30 12/08/19 16:43 DC Docusate Sodium (Colace) 100 mg PRN BID PRN 12/06/19 19:30 Enoxaparin Sodium (Lovenox 40mg Syringe) 40 mg Q24H 12/06/19 21:00 12/09/19 20:26 40 MG Guaifenesin (Robitussin) 200 mg PRN Q4HRS PRN 12/06/19 19:30 Hydrocortisone (Cortizone-10) 1 cali TID 12/07/19 10:00 12/09/19 20:33 1 CALI Hydromorphone HCl (Dilaudid) 1 mg PRN Q3HRS PRN 12/06/19 21:45 12/10/19 00:29 1 MG Influenza Virus Vaccine Quadrival (Fluzone Quad Syringe) 0.5 ml ONCE ONCE 12/07/19 09:00 12/07/19 09:01 DC 12/07/19 09:26 0.5 ML Info (CONTRAST GIVEN -- Rx MONITORING) 1 each PRN DAILY PRN 12/06/19 18:15 12/08/19 18:14 DC Insulin Glargine (Lantus Syringe) 20 unit QAM 12/09/19 10:00 12/09/19 09:43 20 UNIT Insulin Human Lispro (HumaLOG) 8 units TIDWMEALS 12/07/19 12:00 12/09/19 17:37 8 UNITS Insulin Human Regular 100 ml @ 0 mls/hr 1X ONCE 12/06/19 18:00 12/06/19 18:01 DC 12/06/19 19:41 7.8 MLS/HR Insulin Human Regular (HumuLIN R VIAL) 10 unit 1X ONCE 12/06/19 17:30 12/06/19 17:31 DC 12/06/19 17:42 10 UNIT Iohexol (Omnipaque 300 Mg/ml) 60 ml 1X ONCE 12/06/19 18:30 12/06/19 18:31 DC 12/06/19 18:28 60 ML Lactobacillus Rhamnosus (Culturelle) 1 cap BID 12/07/19 21:00 12/09/19 20:27 1 CAP Levofloxacin/ Dextrose 100 ml @ 100 mls/hr Q24H 12/07/19 06:00 12/07/19 11:26 DC 12/07/19 05:05 100 MLS/HR Levofloxacin/ Dextrose (Levaquin Per Pharmacy) 1 each PRN DAILY PRN 12/06/19 19:30 Cancel Lorazepam (Ativan) 0.5 mg PRN Q4HRS PRN 12/06/19 19:30 Ondansetron HCl (Zofran) 4 mg PRN Q4HRS PRN 12/06/19 19:30 Piperacillin Sod/ Tazobactam Sod 3.375 gm/Sodium Chloride 50 ml @ 100 mls/hr Q6HRS 12/07/19 12:00 12/10/19 06:18 100 MLS/HR Piperacillin Sod/ Tazobactam Sod 4.5 gm/Sodium Chloride 100 ml @ 200 mls/hr 1X ONCE 12/06/19 16:45 12/06/19 17:22 DC Potassium Chloride/Water 100 ml @ 100 mls/hr Q1H 12/10/19 07:30 12/10/19 11:29 Potassium Chloride (Klor-Con) 40 meq BID 12/10/19 07:00 12/10/19 07:04 40 MEQ Sodium Bicarbonate 50 meq/Dextrose/ Sodium Chloride 1,050 ml @ 200 mls/hr Q5H15M 12/08/19 17:00 12/09/19 19:15 200 MLS/HR Sodium Monofluorophosphate (Fleet Adult) 133 ml PRN DAILY PRN 12/06/19 19:30 Sodium Bicarbonate (Sodium Bicarb Adult 8.4% Syr) 100 meq 1X ONCE 12/06/19 18:00 12/06/19 18:01 DC 12/06/19 18:49 100 MEQ Sodium Chloride 1,000 ml @ 1,000 mls/hr 1X ONCE 12/07/19 09:15 12/07/19 10:14 DC 12/07/19 09:35 1,000 MLS/HR Sodium Chloride (Normal Saline Flush) 3 ml QSHIFT PRN 12/06/19 19:30 Vancomycin HCl (Vanco Per Pharmacy) 1 each PRN DAILY PRN 12/06/19 19:30 12/09/19 14:17 1 EACH Vancomycin HCl (Vancomycin Trough Level) 1 each 1X ONCE 12/08/19 08:30 12/08/19 08:31 DC 12/08/19 08:31 1 EACH Vancomycin HCl 1.75 gm/Sodium Chloride 500 ml @ 250 mls/hr Q12H 12/07/19 09:00 12/08/19 10:00 DC 12/08/19 09:50 250 MLS/HR Vancomycin HCl 2 gm/Sodium Chloride 500 ml @ 250 mls/hr Q12H 12/08/19 21:00 12/09/19 20:31 250 MLS/HR Zinc Acetate/ Diphenhydramine (Benadryl Topical) 1 cali PRN Q4HRS PRN 12/07/19 09:30 12/07/19 21:24 1 CALI Labs: Lab Laboratory Tests Test 12/09/19 10:47 12/09/19 16:22 12/09/19 20:22 12/10/19 00:11 Glucose (Fingerstick) 258 mg/dL (70-99) 183 mg/dL (70-99) 224 mg/dL (70-99) 147 mg/dL (70-99) Test 12/10/19 04:30 12/10/19 05:03 12/10/19 07:03 Glucose (Fingerstick) 200 mg/dL (70-99) 234 mg/dL (70-99) White Blood Count 11.6 x10^3/uL (4.0-11.0) Red Blood Count 4.07 x10^6/uL (4.30-5.70) Hemoglobin 11.5 g/dL (13.0-17.5) Hematocrit 32.9 % (39.0-53.0) Mean Corpuscular Volume 81 fL (79-100) Mean Corpuscular Hemoglobin 28 pg (25-35) Mean Corpuscular Hemoglobin Concent 35 g/dL (31-37) Red Cell Distribution Width 13.4 % (11.5-14.5) Platelet Count 306 x10^3/uL (140-400) Neutrophils (%) (Auto) 73 % (31-73) Lymphocytes (%) (Auto) 13 % (24-48) Monocytes (%) (Auto) 12 % (0-9) Eosinophils (%) (Auto) 2 % (0-3) Basophils (%) (Auto) 0 % (0-3) Neutrophils # (Auto) 8.5 x10^3/uL (1.8-7.7) Lymphocytes # (Auto) 1.5 x10^3/uL (1.0-4.8) Monocytes # (Auto) 1.4 x10^3/uL (0.0-1.1) Eosinophils # (Auto) 0.2 x10^3/uL (0.0-0.7) Basophils # (Auto) 0.0 x10^3/uL (0.0-0.2) Sodium Level 141 mmol/L (136-145) Potassium Level 2.5 mmol/L (3.5-5.1) Chloride Level 106 mmol/L (98-107) Carbon Dioxide Level 20 mmol/L (21-32) Anion Gap 15 (6-14) Blood Urea Nitrogen 3 mg/dL (8-26) Creatinine 0.5 mg/dL (0.7-1.3) Estimated GFR (Cockcroft-Gault) 176.7 BUN/Creatinine Ratio 6 (6-20) Glucose Level 215 mg/dL (70-99) Calcium Level 7.4 mg/dL (8.5-10.1) Total Bilirubin 0.3 mg/dL (0.2-1.0) Aspartate Amino Transf (AST/SGOT) 12 U/L (15-37) Alanine Aminotransferase (ALT/SGPT) 12 U/L (16-63) Alkaline Phosphatase 43 U/L (46-116) Total Protein 5.1 g/dL (6.4-8.2) Albumin 1.9 g/dL (3.4-5.0) Albumin/Globulin Ratio 0.6 (1.0-1.7) Objective: Assessment: 1. Scrotal cellulitis. Improving 2. Diabetes with poor control. 3. Metabolic acidosis/diabetic ketoacidosis. 4. Obesity. 5. Diabetes. 6. Penicillin allergy tolerated Zosyn well Plan: Plan of Care DC IV Vanco and Zosyn Start p.o. Augmentin and doxycycline for 10 days Elevate scrotum Local care Supportive care ZACHARY JEROME MD Dec 10, 2019 07:56
[2019-12-10] MEDS: POTASSIUM CHLORIDE 10MEQ 100 ML IV SCH ×4 (08:47→14:03)
[2019-12-10] MEDS: LACTOBACILLUS RHAMNOSUS GG 1 CAPSULE. PO SCH ×2 (09:33→20:54)
[2019-12-10 10:47] VITALS: BP 132/70
--- NOTE | 2019-12-10 11:12 | NUR ---
SW following. Discussed with RN, pt from home, room air, ada diet. PT/OT recommending home independent. IV abx have been changed to po augmentin, and doxycycline. RN advised no SW needs. SW will continue to follow.
[2019-12-10] MEDS: AMOXICILLIN/K CLAV 875/125MG TABLET. PO SCH ×2 (11:42→20:54)
[2019-12-10] MEDS: DOXYCYCLINE HYCLATE 100 MG TABLET PO SCH ×2 (11:44→20:54)
[2019-12-10] MEDS: INSULIN GLARGINE SYRINGE. SQ SCH (11:50)
[2019-12-10] MEDS: HYDROCORTISONE 1% LOTION BOTTLE. TP SCH ×2 (14:08→20:54)
[2019-12-10 15:00] VITALS: BP 142/68
--- NOTE | 2019-12-10 17:51 | PDOC ---
[employer] PROGRESS NOTE Date of Service DOS: DATE: 12/10/19 TIME: 17:49 Chief Complaint Chief Complaint DKA Scrotal cellulitis Obese, BMI 36 Sepsis UNCONTROLLED DIABETES 2, poor compliance 2 years, had no insurance until recently - A1c 13.5 ION due to vasomotor nephropathy Lactic acidosis Severe protein malnutrition Continue Lantus and lispro and R ISS Continue IV empiric antibiotics Appreciate ID recommendations History of Present Illness History of Present Illness Mr Metcalf is a is a 49yo M w/ PMHx diabetes, obesity, HTN, hypothyroidism who came in the ER with some scrotal swelling, pain, had vomited at home and some nausea. The patient was found to have scrotal cellulitis, sepsis, and DKA, initially admitted to ICU. 12/06: ID consult 12/07: No acute events overnight. Patient's scrotal swelling has decreased and patient does not voice any pain at this time. Patient's chart, labs, images were reviewed and discussed with RN 12/08: Overnight afebrile. This morning spilled his urine, lost on IV had a bowel movement on himself in bed. Scrotal swelling significantly improved. Glucose 325 this morning. No chest pain or shortness of breath. 12/09: Patient evaluated bedside. He notes some scrotal swelling continues to improve. Hypokalemic today, will replace. His vancomycin and Zosyn have been discontinued, okay to continue on Augmentin and doxycycline twice daily for 10 days per infectious disease. He is unsure of his home diabetes medications, he is requesting that we verify his home medications with his old pharmacy prior to discharge home. Vitals/I&O Vitals/I&O: Vital Signs Date Time Temp Pulse Resp B/P (MAP) Pulse Ox O2 Delivery O2 Flow Rate FiO2 12/10/19 15:00 97.8 78 18 142/68 (92) 96 Room Air 97.8 I & O 12/09/19 12/09/19 12/10/19 15:00 23:00 07:00 Intake Total 300 ml 300 ml Output Total 850 ml 0 ml 1000 ml Balance -550 ml 300 ml -1000 ml Physical Exam Physical Exam: GENERAL: Alert, oriented gentleman, not in any distress. HEENT: Anicteric oral mucosa moist NECK: Supple. No JVP, no lymphadenopathy. LUNGS: Clear. HEART: S1, S2 regular. ABDOMEN: Benign. EXTREMITIES: No edema or cyanosis. SKIN: Unremarkable. Scrotum is swollen, red and tender and there is some skin breakdown on the posterior aspect of the scrotum. NEUROLOGIC: alert, awake and appropriate. No focal neurologic deficit. General: Alert, Oriented X3, Cooperative, mild distress Heart: Regular rate Lungs: Clear Abdomen: Normal bowel sounds, Soft, No tenderness Extremities: No clubbing, No cyanosis Skin: Other (Scrotal edema and erythema. There is an eschar formation in the posterior scrotal region. No crepitus or bleeding seen.) Labs Labs: Laboratory Tests Test 12/09/19 20:22 12/10/19 00:11 12/10/19 04:30 12/10/19 05:03 Glucose (Fingerstick) 224 mg/dL (70-99) 147 mg/dL (70-99) 200 mg/dL (70-99) White Blood Count 11.6 x10^3/uL (4.0-11.0) Red Blood Count 4.07 x10^6/uL (4.30-5.70) Hemoglobin 11.5 g/dL (13.0-17.5) Hematocrit 32.9 % (39.0-53.0) Mean Corpuscular Volume 81 fL (79-100) Mean Corpuscular Hemoglobin 28 pg (25-35) Mean Corpuscular Hemoglobin Concent 35 g/dL (31-37) Red Cell Distribution Width 13.4 % (11.5-14.5) Platelet Count 306 x10^3/uL (140-400) Neutrophils (%) (Auto) 73 % (31-73) Lymphocytes (%) (Auto) 13 % (24-48) Monocytes (%) (Auto) 12 % (0-9) Eosinophils (%) (Auto) 2 % (0-3) Basophils (%) (Auto) 0 % (0-3) Neutrophils # (Auto) 8.5 x10^3/uL (1.8-7.7) Lymphocytes # (Auto) 1.5 x10^3/uL (1.0-4.8) Monocytes # (Auto) 1.4 x10^3/uL (0.0-1.1) Eosinophils # (Auto) 0.2 x10^3/uL (0.0-0.7) Basophils # (Auto) 0.0 x10^3/uL (0.0-0.2) Sodium Level 141 mmol/L (136-145) Potassium Level 2.5 mmol/L (3.5-5.1) Chloride Level 106 mmol/L (98-107) Carbon Dioxide Level 20 mmol/L (21-32) Anion Gap 15 (6-14) Blood Urea Nitrogen 3 mg/dL (8-26) Creatinine 0.5 mg/dL (0.7-1.3) Estimated GFR (Cockcroft-Gault) 176.7 BUN/Creatinine Ratio 6 (6-20) Glucose Level 215 mg/dL (70-99) Calcium Level 7.4 mg/dL (8.5-10.1) Total Bilirubin 0.3 mg/dL (0.2-1.0) Aspartate Amino Transf (AST/SGOT) 12 U/L (15-37) Alanine Aminotransferase (ALT/SGPT) 12 U/L (16-63) Alkaline Phosphatase 43 U/L (46-116) Total Protein 5.1 g/dL (6.4-8.2) Albumin 1.9 g/dL (3.4-5.0) Albumin/Globulin Ratio 0.6 (1.0-1.7) Test 12/10/19 07:03 12/10/19 10:59 12/10/19 16:27 Glucose (Fingerstick) 234 mg/dL (70-99) 207 mg/dL (70-99) 146 mg/dL (70-99) Review of Systems Review of Systems: Scrotal swelling. Denies dysuria, denies fever, denies chest pain. Assessment and Plan Assessmemt and Plan Problems Medical Problems: (1) Cellulitis, scrotum Status: Acute (2) Diabetic ketoacidosis Status: Acute (3) Severe sepsis Status: Acute Comment Review of Relevant I have reviewed the following items brandin (where applicable) has been applied. Medications: Current Medications Medications (Trade) Dose Ordered Sig/Stephanie Route PRN Reason Start Time Stop Time Status Last Admin Dose Admin Potassium Chloride (Klor-Con) 40 meq BID PO 12/10/19 07:00 12/10/19 07:04 Potassium Chloride/Water 100 ml @ 100 mls/hr Q1H IV 12/10/19 07:30 12/10/19 11:29 DC 12/10/19 14:03 Amoxicillin/ Clavulanate Potassium (Augmentin 875/ 125mg) 1 tab BID PO 12/10/19 09:00 12/10/19 11:42 Doxycycline Hyclate (Vibra-Tab) 100 mg BID PO 12/10/19 09:00 12/10/19 11:44 Justifications for Admission Other Justification TAWNYA SIMMS MD Dec 10, 2019 17:51
[2019-12-10 19:00] VITALS: BP 124/76
[2019-12-10] MEDS: ENOXAPARIN 40 MG/0.4 ML SYRINGE. SQ SCH (20:53)
[2019-12-10 23:00] VITALS: BP 131/74
[2019-12-11] MEDS: INSULIN LISPRO 300 UNITS/3 ML VIAL. SQ SCH ×6 (01:16→12:45)
[2019-12-11] MEDS: SODIUM BICARBONATE IV SCH (02:13)
[2019-12-11] MEDS: DEXTROSE IV SCH (02:13)
[2019-12-11] MEDS: IV NORMAL SALINE 1000ML BAG 1,000 ML IV SCH (02:13)
[2019-12-11] MEDS: NACL IV SCH (02:13)
[2019-12-11 03:00] VITALS: BP 140/83
[2019-12-11 05:06] LABS: CALCIUM 7.3 mg/dL (8.5-10.1); CREATININE 0.5 mg/dL (0.7-1.3); GFR 176.7
[2019-12-11 05:13] LABS: POTASSIUM 2.9 mmol/L (3.5-5.1)
--- NOTE | 2019-12-11 05:20 | NUR ---
Patient's nurse, Era, given the critical potassium results.
[2019-12-11] MEDS: HYDROmorphone 2 MG/ML VIAL IVP PRN (05:48)
[2019-12-11] MEDS ORDERED: POTASSIUM CHLORIDE 20 MEQ TABLET.ER. PO ONE (06:30)
[2019-12-11 07:00] VITALS: BP 122/76
--- NOTE | 2019-12-11 07:19 | PDOC ---
Infectious Disease Note Subjective: Subjective Feeling better Vital Signs: Vital Signs Vital Signs Date Time Temp Pulse Resp B/P (MAP) Pulse Ox O2 Delivery O2 Flow Rate FiO2 12/11/19 06:18 18 Room Air 12/11/19 03:00 98.0 73 140/83 (102) 96 98.0 Physical Exam: PHYSICAL EXAM GENERAL: Alert, oriented gentleman, not in any distress. HEENT: Anicteric oral mucosa moist NECK: Supple. No JVP, no lymphadenopathy. LUNGS: Clear. HEART: S1, S2 regular. ABDOMEN: Benign. EXTREMITIES: No edema or cyanosis. SKIN: Unremarkable. Scrotum is swollen, red and tender and there is some skin breakdown on the posterior aspect of the scrotum. NEUROLOGIC: alert, awake and appropriate. No focal neurologic deficit. Medications: Inpatient Meds: Current Medications Medications (Trade) Dose Ordered Sig/Stephanie Start Time Stop Time Status Last Admin Dose Admin Acetaminophen (Tylenol) 650 mg PRN Q4HRS PRN 12/06/19 19:30 Albuterol Sulfate (Ventolin Neb Soln) 2.5 mg PRN Q4HRS PRN 12/06/19 19:30 Amoxicillin/ Clavulanate Potassium (Augmentin 875/ 125mg) 1 tab BID 12/10/19 09:00 12/10/19 20:54 1 TAB Ciprofloxacin/ Dextrose 200 ml @ 200 mls/hr 1X ONCE 12/06/19 17:30 12/06/19 18:29 DC 12/06/19 18:09 200 MLS/HR Clindamycin Phosphate 50 ml @ 100 mls/hr 1X ONCE 12/06/19 17:30 12/06/19 17:59 DC 12/06/19 17:50 100 MLS/HR Clonidine HCl (Catapres) 0.1 mg PRN Q6HRS PRN 12/06/19 19:30 Dextrose (Dextrose 50%-Water Syringe) 12.5 gm PRN Q15MIN PRN 12/07/19 02:15 Dextrose/Sodium Chloride 1,000 ml @ 200 mls/hr Q5H 12/08/19 16:30 12/08/19 16:43 DC Docusate Sodium (Colace) 100 mg PRN BID PRN 12/06/19 19:30 Doxycycline Hyclate (Vibra-Tab) 100 mg BID 12/10/19 09:00 12/10/19 20:54 100 MG Enoxaparin Sodium (Lovenox 40mg Syringe) 40 mg Q24H 12/06/19 21:00 12/10/19 20:53 40 MG Guaifenesin (Robitussin) 200 mg PRN Q4HRS PRN 12/06/19 19:30 Hydrocortisone (Cortizone-10) 1 cali TID 12/07/19 10:00 12/10/19 20:54 1 CALI Hydromorphone HCl (Dilaudid) 1 mg PRN Q3HRS PRN 12/06/19 21:45 12/11/19 05:48 1 MG Influenza Virus Vaccine Quadrival (Fluzone Quad Syringe) 0.5 ml ONCE ONCE 12/07/19 09:00 12/07/19 09:01 DC 12/07/19 09:26 0.5 ML Info (CONTRAST GIVEN -- Rx MONITORING) 1 each PRN DAILY PRN 12/06/19 18:15 12/08/19 18:14 DC Insulin Glargine (Lantus Syringe) 20 unit QAM 12/09/19 10:00 12/10/19 11:50 20 UNIT Insulin Human Lispro (HumaLOG) 8 units TIDWMEALS 12/07/19 12:00 12/10/19 18:07 8 UNITS Insulin Human Regular 100 ml @ 0 mls/hr 1X ONCE 12/06/19 18:00 12/06/19 18:01 DC 12/06/19 19:41 7.8 MLS/HR Insulin Human Regular (HumuLIN R VIAL) 10 unit 1X ONCE 12/06/19 17:30 12/06/19 17:31 DC 12/06/19 17:42 10 UNIT Iohexol (Omnipaque 300 Mg/ml) 60 ml 1X ONCE 12/06/19 18:30 12/06/19 18:31 DC 12/06/19 18:28 60 ML Lactobacillus Rhamnosus (Culturelle) 1 cap BID 12/07/19 21:00 12/10/19 20:54 1 CAP Levofloxacin/ Dextrose 100 ml @ 100 mls/hr Q24H 12/07/19 06:00 12/07/19 11:26 DC 12/07/19 05:05 100 MLS/HR Levofloxacin/ Dextrose (Levaquin Per Pharmacy) 1 each PRN DAILY PRN 12/06/19 19:30 Cancel Lorazepam (Ativan) 0.5 mg PRN Q4HRS PRN 12/06/19 19:30 Ondansetron HCl (Zofran) 4 mg PRN Q4HRS PRN 12/06/19 19:30 Piperacillin Sod/ Tazobactam Sod 3.375 gm/Sodium Chloride 50 ml @ 100 mls/hr Q6HRS 12/07/19 12:00 12/10/19 08:38 DC 12/10/19 06:18 100 MLS/HR Piperacillin Sod/ Tazobactam Sod 4.5 gm/Sodium Chloride 100 ml @ 200 mls/hr 1X ONCE 12/06/19 16:45 12/06/19 17:22 DC Potassium Chloride/Water 100 ml @ 100 mls/hr Q1H 12/10/19 07:30 12/10/19 11:29 DC 12/10/19 14:03 100 MLS/HR Potassium Chloride (Klor-Con) 40 meq 1X ONCE 12/11/19 06:30 12/11/19 06:31 DC Sodium Bicarbonate 50 meq/Dextrose/ Sodium Chloride 1,050 ml @ 200 mls/hr Q5H15M 12/08/19 17:00 12/11/19 02:13 200 MLS/HR Sodium Monofluorophosphate (Fleet Adult) 133 ml PRN DAILY PRN 12/06/19 19:30 Sodium Bicarbonate (Sodium Bicarb Adult 8.4% Syr) 100 meq 1X ONCE 12/06/19 18:00 12/06/19 18:01 DC 12/06/19 18:49 100 MEQ Sodium Chloride 1,000 ml @ 1,000 mls/hr 1X ONCE 12/07/19 09:15 12/07/19 10:14 DC 12/07/19 09:35 1,000 MLS/HR Sodium Chloride (Normal Saline Flush) 3 ml QSHIFT PRN 12/06/19 19:30 Vancomycin HCl (Vanco Per Pharmacy) 1 each PRN DAILY PRN 12/06/19 19:30 12/10/19 08:40 DC 12/09/19 14:17 1 EACH Vancomycin HCl (Vancomycin Trough Level) 1 each 1X ONCE 12/08/19 08:30 12/08/19 08:31 DC 12/08/19 08:31 1 EACH Vancomycin HCl 1.75 gm/Sodium Chloride 500 ml @ 250 mls/hr Q12H 12/07/19 09:00 12/08/19 10:00 DC 12/08/19 09:50 250 MLS/HR Vancomycin HCl 2 gm/Sodium Chloride 500 ml @ 250 mls/hr Q12H 12/08/19 21:00 12/10/19 08:38 DC 12/09/19 20:31 250 MLS/HR Zinc Acetate/ Diphenhydramine (Benadryl Topical) 1 cali PRN Q4HRS PRN 12/07/19 09:30 12/07/19 21:24 1 CALI Labs: Lab Laboratory Tests Test 12/10/19 10:59 12/10/19 16:27 12/10/19 19:33 12/11/19 01:13 Glucose (Fingerstick) 207 mg/dL (70-99) 146 mg/dL (70-99) 136 mg/dL (70-99) 174 mg/dL (70-99) Test 12/11/19 03:45 12/11/19 03:48 12/11/19 07:14 Sodium Level 142 mmol/L (136-145) Potassium Level 2.9 mmol/L (3.5-5.1) Chloride Level 107 mmol/L (98-107) Carbon Dioxide Level 19 mmol/L (21-32) Anion Gap 16 (6-14) Blood Urea Nitrogen 3 mg/dL (8-26) Creatinine 0.5 mg/dL (0.7-1.3) Estimated GFR (Cockcroft-Gault) 176.7 Glucose Level 222 mg/dL (70-99) Calcium Level 7.3 mg/dL (8.5-10.1) Glucose (Fingerstick) 223 mg/dL (70-99) 233 mg/dL (70-99) Objective: Assessment: 1. Scrotal cellulitis. Improving 2. Diabetes with poor control. 3. Metabolic acidosis/diabetic ketoacidosis. 4. Obesity. 5. Diabetes. 6. Penicillin allergy tolerated Zosyn well Plan: Plan of Care Okay to discharge home from ID standpoint continue Augmentin and doxycycline for 10 days Elevate scrotum Optimal diabetes control Local care Supportive care ZACHARY JEROME MD Dec 11, 2019 07:19
[2019-12-11 07:30] LABS: BASO % 0 % (0-3); EOS # 0.2 x10^3/uL (0.0-0.7); EOS % 2 % (0-3); HEMATOCRIT 32.6 % (39.0-53.0); HEMOGLOBIN 11.5 g/dL (13.0-17.5); LYMPH # 1.7 x10^3/uL (1.0-4.8); LYMPH % 16 % (24-48); MEAN CORPUSCULAR HEMOGLOBIN 29 pg (25-35); MEAN CORPUSCULAR HGB CONC 35 g/dL (31-37); MEAN CORPUSCULAR VOLUME 81 fL (79-100); MONO # 1.3 x10^3/uL (0.0-1.1); MONO % 12 % (0-9); NEUT # 7.7 x10^3/uL (1.8-7.7); NEUT % 70 % (31-73); PLATELET COUNT 322 x10^3/uL (140-400); RED BLOOD COUNT 4.01 x10^6/uL (4.30-5.70); RED CELL DISTRIBUTION WIDTH 13.3 % (11.5-14.5)
[2019-12-11] MEDS: DOXYCYCLINE HYCLATE 100 MG TABLET PO SCH (07:38)
[2019-12-11] MEDS: LACTOBACILLUS RHAMNOSUS GG 1 CAPSULE. PO SCH (07:38)
[2019-12-11] MEDS: AMOXICILLIN/K CLAV 875/125MG TABLET. PO SCH (07:39)
[2019-12-11] MEDS: POTASSIUM CHLORIDE 20 MEQ TABLET.ER. PO SCH (07:50)
--- NOTE | 2019-12-11 10:19 | PDOC ---
[employer] PROGRESS NOTE Date of Service DOS: DATE: 12/11/19 TIME: 10:18 Chief Complaint Chief Complaint DKA Scrotal cellulitis Obese, BMI 36 Sepsis UNCONTROLLED DIABETES 2, poor compliance 2 years, had no insurance until recently - A1c 13.5 ION due to vasomotor nephropathy Lactic acidosis Severe protein malnutrition Continue Lantus and lispro and R ISS Continue IV empiric antibiotics Appreciate ID recommendations History of Present Illness History of Present Illness Mr Metcalf is a is a 49yo M w/ PMHx diabetes, obesity, HTN, hypothyroidism who came in the ER with some scrotal swelling, pain, had vomited at home and some nausea. The patient was found to have scrotal cellulitis, sepsis, and DKA, initially admitted to ICU. 12/06: ID consult 12/07: No acute events overnight. Patient's scrotal swelling has decreased and patient does not voice any pain at this time. Patient's chart, labs, images were reviewed and discussed with RN 12/08: Overnight afebrile. This morning spilled his urine, lost on IV had a bowel movement on himself in bed. Scrotal swelling significantly improved. Glucose 325 this morning. No chest pain or shortness of breath. 12/09: Patient evaluated bedside. He notes some scrotal swelling continues to improve. Hypokalemic today, will replace. His vancomycin and Zosyn have been discontinued, okay to continue on Augmentin and doxycycline twice daily for 10 days per infectious disease. He is unsure of his home diabetes medications, he is requesting that we verify his home medications with his old pharmacy prior to discharge home. K 2.9 on replacement today. D/w ID ok to d/c on doxy and augmentin. Scrotal swelling much improved. Vitals/I&O Vitals/I&O: Vital Signs Date Time Temp Pulse Resp B/P (MAP) Pulse Ox O2 Delivery O2 Flow Rate FiO2 12/11/19 08:00 Room Air 12/11/19 07:00 97.8 61 19 122/76 (91) 96 97.8 I & O 12/10/19 12/10/19 12/11/19 15:00 23:00 07:00 Intake Total 600 ml 300 ml Output Total 250 ml 900 ml Balance 600 ml 50 ml -900 ml Physical Exam Physical Exam: GENERAL: Alert, oriented gentleman, not in any distress. HEENT: Anicteric oral mucosa moist NECK: Supple. No JVP, no lymphadenopathy. LUNGS: Clear. HEART: S1, S2 regular. ABDOMEN: Benign. EXTREMITIES: No edema or cyanosis. SKIN: Unremarkable. Scrotum is swollen, red and tender and there is some skin breakdown on the posterior aspect of the scrotum. NEUROLOGIC: alert, awake and appropriate. No focal neurologic deficit. General: Alert, Oriented X3, Cooperative, mild distress Heart: Regular rate Lungs: Clear Abdomen: Normal bowel sounds, Soft, No tenderness Extremities: No clubbing, No cyanosis Skin: Other (Scrotal edema and erythema. There is an eschar formation in the posterior scrotal region. No crepitus or bleeding seen.) Labs Labs: Laboratory Tests Test 12/10/19 10:59 12/10/19 16:27 12/10/19 19:33 12/11/19 01:13 Glucose (Fingerstick) 207 mg/dL (70-99) 146 mg/dL (70-99) 136 mg/dL (70-99) 174 mg/dL (70-99) Test 12/11/19 03:45 12/11/19 03:48 12/11/19 07:00 12/11/19 07:14 Sodium Level 142 mmol/L (136-145) Potassium Level 2.9 mmol/L (3.5-5.1) Chloride Level 107 mmol/L (98-107) Carbon Dioxide Level 19 mmol/L (21-32) Anion Gap 16 (6-14) Blood Urea Nitrogen 3 mg/dL (8-26) Creatinine 0.5 mg/dL (0.7-1.3) Estimated GFR (Cockcroft-Gault) 176.7 Glucose Level 222 mg/dL (70-99) Calcium Level 7.3 mg/dL (8.5-10.1) Glucose (Fingerstick) 223 mg/dL (70-99) 233 mg/dL (70-99) White Blood Count 11.0 x10^3/uL (4.0-11.0) Red Blood Count 4.01 x10^6/uL (4.30-5.70) Hemoglobin 11.5 g/dL (13.0-17.5) Hematocrit 32.6 % (39.0-53.0) Mean Corpuscular Volume 81 fL (79-100) Mean Corpuscular Hemoglobin 29 pg (25-35) Mean Corpuscular Hemoglobin Concent 35 g/dL (31-37) Red Cell Distribution Width 13.3 % (11.5-14.5) Platelet Count 322 x10^3/uL (140-400) Neutrophils (%) (Auto) 70 % (31-73) Lymphocytes (%) (Auto) 16 % (24-48) Monocytes (%) (Auto) 12 % (0-9) Eosinophils (%) (Auto) 2 % (0-3) Basophils (%) (Auto) 0 % (0-3) Neutrophils # (Auto) 7.7 x10^3/uL (1.8-7.7) Lymphocytes # (Auto) 1.7 x10^3/uL (1.0-4.8) Monocytes # (Auto) 1.3 x10^3/uL (0.0-1.1) Eosinophils # (Auto) 0.2 x10^3/uL (0.0-0.7) Basophils # (Auto) 0.0 x10^3/uL (0.0-0.2) Assessment and Plan Assessmemt and Plan Problems Medical Problems: (1) Cellulitis, scrotum Status: Acute (2) Diabetic ketoacidosis Status: Acute (3) Severe sepsis Status: Acute Comment Review of Relevant I have reviewed the following items brandin (where applicable) has been applied. Medications: Current Medications Medications (Trade) Dose Ordered Sig/Stephanie Route PRN Reason Start Time Stop Time Status Last Admin Dose Admin Potassium Chloride (Klor-Con) 40 meq 1X ONCE PO 12/11/19 06:30 12/11/19 06:31 DC 12/11/19 07:38 Justifications for Admission Other Justification LAW TEMPLE MD Dec 11, 2019 10:19
[2019-12-11] MEDS ORDERED: DOXY100T PO (10:24)
[2019-12-11] MEDS ORDERED: INSU100I17 SQ (10:24)
[2019-12-11] MEDS ORDERED: LOSA25TA54 PO (10:24)
[2019-12-11] MEDS ORDERED: METF500T16 PO (10:24)
[2019-12-11] MEDS ORDERED: AMOX1TAB11 PO (10:24)
[2019-12-11] MEDS ORDERED: INSU100I13 SQ (10:24)
[2019-12-11] MEDS ORDERED: POTA20TA4 PO (10:24)
[2019-12-11] MEDS ORDERED: TRAM50TA PO (10:25)
[2019-12-11] MEDS: INSULIN GLARGINE SYRINGE. SQ SCH (10:34)
[2019-12-11] MEDS: HYDROCORTISONE 1% LOTION BOTTLE. TP SCH (10:38)
[2019-12-11] MEDS: POTASSIUM CHLORIDE 10MEQ 100 ML IV SCH ×2 (10:39→12:16)
[2019-12-11 11:14] VITALS: BP 124/70
[2019-12-11 11:41] LABS: MAGNESIUM 2.1 mg/dL (1.8-2.4); PHOSPHORUS 1.6 mg/dL (2.6-4.7)
[2019-12-11 15:00] VITALS: BP 132/74
--- NOTE | 2019-12-11 16:26 | NUR ---
SW following. Spoke with RN and reviewed chart. Pt to discharge home today, self-care. Pt on room air and oral medications. No further SW needs at this time.
--- NOTE | 2019-12-12 00:05 | PDOC3 ---
Discharge Summary Visit Information Date of Admission: Dec 06, 2019 Date of Discharge: Dec 11, 2019 Admitting Diagnosis: DKA Final Diagnosis Problems Medical Problems: (1) Cellulitis, scrotum Status: Acute (2) Diabetic ketoacidosis Status: Acute (3) Severe sepsis Status: Acute Brief Hospital Course Allergies Allergies Coded Allergies Type Severity Reaction Last Updated Verified Penicillins Allergy Intermediate Rash 12/06/19 Yes Vital Signs Vital Signs Date Time Temp Pulse Resp B/P (MAP) Pulse Ox O2 Delivery O2 Flow Rate FiO2 12/11/19 15:00 97.8 68 19 132/74 (93) 98 Room Air 97.8 Lab Results Laboratory Tests Test 12/10/19 00:11 12/10/19 04:30 12/10/19 05:03 12/10/19 07:03 Glucose (Fingerstick) 147 mg/dL (70-99) 200 mg/dL (70-99) 234 mg/dL (70-99) White Blood Count 11.6 x10^3/uL (4.0-11.0) Red Blood Count 4.07 x10^6/uL (4.30-5.70) Hemoglobin 11.5 g/dL (13.0-17.5) Hematocrit 32.9 % (39.0-53.0) Mean Corpuscular Volume 81 fL (79-100) Mean Corpuscular Hemoglobin 28 pg (25-35) Mean Corpuscular Hemoglobin Concent 35 g/dL (31-37) Red Cell Distribution Width 13.4 % (11.5-14.5) Platelet Count 306 x10^3/uL (140-400) Neutrophils (%) (Auto) 73 % (31-73) Lymphocytes (%) (Auto) 13 % (24-48) Monocytes (%) (Auto) 12 % (0-9) Eosinophils (%) (Auto) 2 % (0-3) Basophils (%) (Auto) 0 % (0-3) Neutrophils # (Auto) 8.5 x10^3/uL (1.8-7.7) Lymphocytes # (Auto) 1.5 x10^3/uL (1.0-4.8) Monocytes # (Auto) 1.4 x10^3/uL (0.0-1.1) Eosinophils # (Auto) 0.2 x10^3/uL (0.0-0.7) Basophils # (Auto) 0.0 x10^3/uL (0.0-0.2) Sodium Level 141 mmol/L (136-145) Potassium Level 2.5 mmol/L (3.5-5.1) Chloride Level 106 mmol/L (98-107) Carbon Dioxide Level 20 mmol/L (21-32) Anion Gap 15 (6-14) Blood Urea Nitrogen 3 mg/dL (8-26) Creatinine 0.5 mg/dL (0.7-1.3) Estimated GFR (Cockcroft-Gault) 176.7 BUN/Creatinine Ratio 6 (6-20) Glucose Level 215 mg/dL (70-99) Calcium Level 7.4 mg/dL (8.5-10.1) Total Bilirubin 0.3 mg/dL (0.2-1.0) Aspartate Amino Transf (AST/SGOT) 12 U/L (15-37) Alanine Aminotransferase (ALT/SGPT) 12 U/L (16-63) Alkaline Phosphatase 43 U/L (46-116) Total Protein 5.1 g/dL (6.4-8.2) Albumin 1.9 g/dL (3.4-5.0) Albumin/Globulin Ratio 0.6 (1.0-1.7) Test 12/10/19 10:59 12/10/19 16:27 12/10/19 19:33 12/11/19 01:13 Glucose (Fingerstick) 207 mg/dL (70-99) 146 mg/dL (70-99) 136 mg/dL (70-99) 174 mg/dL (70-99) Test 12/11/19 03:45 12/11/19 03:48 12/11/19 07:00 12/11/19 07:14 Sodium Level 142 mmol/L (136-145) Potassium Level 2.9 mmol/L (3.5-5.1) Chloride Level 107 mmol/L (98-107) Carbon Dioxide Level 19 mmol/L (21-32) Anion Gap 16 (6-14) Blood Urea Nitrogen 3 mg/dL (8-26) Creatinine 0.5 mg/dL (0.7-1.3) Estimated GFR (Cockcroft-Gault) 176.7 Glucose Level 222 mg/dL (70-99) Calcium Level 7.3 mg/dL (8.5-10.1) Phosphorus Level 1.6 mg/dL (2.6-4.7) Magnesium Level 2.1 mg/dL (1.8-2.4) Glucose (Fingerstick) 223 mg/dL (70-99) 233 mg/dL (70-99) White Blood Count 11.0 x10^3/uL (4.0-11.0) Red Blood Count 4.01 x10^6/uL (4.30-5.70) Hemoglobin 11.5 g/dL (13.0-17.5) Hematocrit 32.6 % (39.0-53.0) Mean Corpuscular Volume 81 fL (79-100) Mean Corpuscular Hemoglobin 29 pg (25-35) Mean Corpuscular Hemoglobin Concent 35 g/dL (31-37) Red Cell Distribution Width 13.3 % (11.5-14.5) Platelet Count 322 x10^3/uL (140-400) Neutrophils (%) (Auto) 70 % (31-73) Lymphocytes (%) (Auto) 16 % (24-48) Monocytes (%) (Auto) 12 % (0-9) Eosinophils (%) (Auto) 2 % (0-3) Basophils (%) (Auto) 0 % (0-3) Neutrophils # (Auto) 7.7 x10^3/uL (1.8-7.7) Lymphocytes # (Auto) 1.7 x10^3/uL (1.0-4.8) Monocytes # (Auto) 1.3 x10^3/uL (0.0-1.1) Eosinophils # (Auto) 0.2 x10^3/uL (0.0-0.7) Basophils # (Auto) 0.0 x10^3/uL (0.0-0.2) Test 12/11/19 11:45 Glucose (Fingerstick) 227 mg/dL (70-99) Laboratory Tests Test 12/11/19 01:13 12/11/19 03:45 12/11/19 03:48 12/11/19 07:00 Glucose (Fingerstick) 174 mg/dL (70-99) 223 mg/dL (70-99) Sodium Level 142 mmol/L (136-145) Potassium Level 2.9 mmol/L (3.5-5.1) Chloride Level 107 mmol/L (98-107) Carbon Dioxide Level 19 mmol/L (21-32) Anion Gap 16 (6-14) Blood Urea Nitrogen 3 mg/dL (8-26) Creatinine 0.5 mg/dL (0.7-1.3) Estimated GFR (Cockcroft-Gault) 176.7 Glucose Level 222 mg/dL (70-99) Calcium Level 7.3 mg/dL (8.5-10.1) Phosphorus Level 1.6 mg/dL (2.6-4.7) Magnesium Level 2.1 mg/dL (1.8-2.4) White Blood Count 11.0 x10^3/uL (4.0-11.0) Red Blood Count 4.01 x10^6/uL (4.30-5.70) Hemoglobin 11.5 g/dL (13.0-17.5) Hematocrit 32.6 % (39.0-53.0) Mean Corpuscular Volume 81 fL (79-100) Mean Corpuscular Hemoglobin 29 pg (25-35) Mean Corpuscular Hemoglobin Concent 35 g/dL (31-37) Red Cell Distribution Width 13.3 % (11.5-14.5) Platelet Count 322 x10^3/uL (140-400) Neutrophils (%) (Auto) 70 % (31-73) Lymphocytes (%) (Auto) 16 % (24-48) Monocytes (%) (Auto) 12 % (0-9) Eosinophils (%) (Auto) 2 % (0-3) Basophils (%) (Auto) 0 % (0-3) Neutrophils # (Auto) 7.7 x10^3/uL (1.8-7.7) Lymphocytes # (Auto) 1.7 x10^3/uL (1.0-4.8) Monocytes # (Auto) 1.3 x10^3/uL (0.0-1.1) Eosinophils # (Auto) 0.2 x10^3/uL (0.0-0.7) Basophils # (Auto) 0.0 x10^3/uL (0.0-0.2) Test 12/11/19 07:14 12/11/19 11:45 Glucose (Fingerstick) 233 mg/dL (70-99) 227 mg/dL (70-99) Brief Hospital Course Mr Metcalf is a is a 49yo M w/ PMHx diabetes, obesity, HTN, hypothyroidism who came in the ER with some scrotal swelling, pain, had vomited at home and some nausea. The patient was found to have scrotal cellulitis, sepsis, and DKA, initially admitted to ICU. 12/06: ID consult 12/07: No acute events overnight. Patient's scrotal swelling has decreased and patient does not voice any pain at this time. Patient's chart, labs, images were reviewed and discussed with RN 12/08: Overnight afebrile. This morning spilled his urine, lost on IV had a bowel movement on himself in bed. Scrotal swelling significantly improved. Glucose 325 this morning. No chest pain or shortness of breath. 12/09: Patient evaluated bedside. He notes some scrotal swelling continues to improve. Hypokalemic today, will replace. His vancomycin and Zosyn have been discontinued, okay to continue on Augmentin and doxycycline twice daily for 10 days per infectious disease. He is unsure of his home diabetes medications, he is requesting that we verify his home medications with his old pharmacy prior to discharge home. K 2.9 on replacement today. D/w ID ok to d/c on doxy and augmentin. Scrotal swelling much improved. Consults: ID Problem list: DKA Scrotal cellulitis Obese, BMI 36 Sepsis UNCONTROLLED DIABETES 2, poor compliance 2 years, had no insurance until recently - A1c 13.5 ION due to vasomotor nephropathy Lactic acidosis Severe protein malnutrition Continue Lantus and lispro and R ISS Greater than 30 minutes spent on d/c home Discharge Information Condition at Discharge: Improved Follow Up: Weeks (1) Disposition/Orders: D/C to Home Scheduled Amoxicillin/Potassium Clav (Amox Tr-K Clv 875-125 Mg Tab) 1 Each Tablet, 1 TAB PO BID for Scrotal cellulitis for 10 Days, #20 Prescribed by: LAW TEMPLE MD on 12/11/19 1024 Doxycycline Hyclate (Doxycycline Hyclate) 100 Mg Tablet, 100 MG PO BID for Scrotal cellulitis for 10 Days, #20 Prescribed by: LAW TEMPLE MD on 12/11/19 1024 Insulin Aspart (Novolog Flexpen) 100 Unit/1 Ml Insuln.pen, 8 UNIT SQ TIDWMEALHC for DM for 30 Days, #15 Ref 3 Prescribed by: LAW TEMPLE MD on 12/11/19 1024 Insulin Glargine,Hum.rec.anlog (Lantus Solostar) 100 Unit/1 Ml Insuln.pen, 20 UNIT SQ QHS for DM for 30 Days, #15 Ref 5 Prescribed by: LAW TEMPLE MD on 12/11/19 1024 Losartan Potassium (Losartan Potassium ) 25 Mg Tablet, 25 MG PO DAILY for HYPERTENSION for 30 Days, #30 Prescribed by: LAW TEMPLE MD on 12/11/19 1024 Metformin Hcl (Metformin Hcl) 500 Mg Tablet, 500 MG PO BIDWMEALS for ANTI- DIABETIC for 30 Days, #60 Ref 0 Prescribed by: LAW TEMPLE MD on 12/11/19 1024 Potassium Chloride (Klor-Con M20) 20 Meq Tab.er.prt, 40 MEQ PO DAILY for Hypokalemia for 14 Days, #28 Prescribed by: LAW TEMPLE MD on 12/11/19 1024 Justicifation of Admission Dx: Justifications for Admission: Justification of Admission Dx: Yes DKA: LAW PLAZA MD Dec 12, 2019 00:05
== END 2019-12-11 15:50 | disposition home or self-care (01) | DRG 871 ==
LOC: ER 16:22 → 5 NORTH 19:31 → ED HOLD 19:35 → 1 WEST ICU 23:15 → 5 NORTH 12-07 14:34
PROVIDERS: ADMIT Family Medicine; ATTEND Family Medicine
DX: A41.9 Sepsis, unspecified organism (principal); E10.10 Type 1 diabetes mellitus with ketoacidosis without coma; E43 Unspecified severe protein-calorie malnutrition; N17.0 Acute kidney failure with tubular necrosis; E03.9 Hypothyroidism, unspecified; E66.01 Morbid (severe) obesity due to excess calories; E78.5 Hyperlipidemia, unspecified; E87.6 Hypokalemia; K40.90 Unilateral inguinal hernia, without obstruction or gangrene, not specified as recurrent; R23.4 Changes in skin texture; R65.20 Severe sepsis without septic shock; N49.2 Inflammatory disorders of scrotum; N43.3 Hydrocele, unspecified; I10 Essential (primary) hypertension; Z88.0 Allergy status to penicillin; Z87.891 Personal history of nicotine dependence; Z82.49 Family history of ischemic heart disease and other diseases of the circulatory system; Z68.36 Body mass index [BMI] 36.0-36.9, adult
CPT/HCPCS: 36415; 36600; 74177; 80048; 80053; 80076; 80202; 81001; 82805; 82962; 83036; 83605; 83690; 83735; 83880; 84100; 84145; 84484; 85007; 85025; 85379; 85384; 85610; 87040; 87641; 90471; 90686; 93005; 96365; 96366; 96368; 96375; 96376; 99285; J0744; J1170; J1650; J1815; J1956; J2405; J2543; J3370; J3480; J3490; J7030; J7040; J7042; Q9967; G0378

== ENCOUNTER → 2019-12-06 | Outpatient (CLI) | payer OTHER ==
[2019-12-06 15:07] LABS: BASO # 0.2 x10^3/uL (0.0-0.2); BASO % 1 % (0-3); EOS % 0 % (0-3); HEMATOCRIT 47.5 % (39.0-53.0); HEMOGLOBIN 15.9 g/dL (13.0-17.5); LYMPH # 0.8 x10^3/uL (1.0-4.8); LYMPH % 3 % (24-48); MEAN CORPUSCULAR HEMOGLOBIN 29 pg (25-35); MEAN CORPUSCULAR HGB CONC 34 g/dL (31-37); MEAN CORPUSCULAR VOLUME 86 fL (79-100); MONO # 1.5 x10^3/uL (0.0-1.1); MONO % 6 % (0-9); NEUT # 23.6 x10^3/uL (1.8-7.7); NEUT % 90 % (31-73); PLATELET COUNT 371 x10^3/uL (140-400); RED BLOOD COUNT 5.51 x10^6/uL (4.30-5.70); RED CELL DISTRIBUTION WIDTH 13.4 % (11.5-14.5); WHITE BLOOD COUNT 26.1 x10^3/uL (4.0-11.0)
[2019-12-06 15:23] LABS: ALBUMIN 3.3 g/dL (3.4-5.0); ALBUMIN/GLOBULIN RATIO 0.6 (1.0-1.7); CALCIUM 9.8 mg/dL (8.5-10.1); CREATININE 1.4 mg/dL (0.7-1.3); GFR 53.9; POTASSIUM 4.9 mmol/L (3.5-5.1); TOTAL BILIRUBIN 0.6 mg/dL (0.2-1.0); TOTAL PROTEIN 8.9 g/dL (6.4-8.2)
[2019-12-06 15:31] LABS: % BANDS 3 % (0-9); % LYMPHS 3 % (24-48); % MONOS 9 % (0-10); % SEGS 85 % (35-66); PLATELET CLUMP PRESENT; PLT ESTIMATE ADEQUATE (ADEQUATE); TOXIC VACUOLATION SLIGHT
[2019-12-06 15:32] LABS: TOXIC GRANULATION SLIGHT
[2019-12-07 07:16] LABS: HEMOGLOBIN A1C 13.1 % (4.8-5.6)
== END ==
LOC: LAB 14:29
PROVIDERS: ATTEND Family Medicine
DX: Z13.220 Encounter for screening for lipoid disorders (principal); E11.9 Type 2 diabetes mellitus without complications; N50.819 Testicular pain, unspecified
CPT/HCPCS: 36415; 80053; 82465; 83036; 85007; 85025

== ENCOUNTER → 2020-01-24 | Outpatient (CLI) | payer OTHER ==
[~2020-01-24] MED LIST: AMOX1TAB11 PO; DOXY100T PO; INSU100I13 SQ; INSU100I17 SQ; LOSA25TA54 PO; METF500T16 PO; POTA20TA4 PO; TRAM50TA PO
[2020-01-24 09:29] LABS: BASO % 1 % (0-3); EOS # 0.2 x10^3/uL (0.0-0.7); EOS % 2 % (0-3); HEMATOCRIT 39.4 % (39.0-53.0); HEMOGLOBIN 13.4 g/dL (13.0-17.5); LYMPH # 1.5 x10^3/uL (1.0-4.8); LYMPH % 19 % (24-48); MEAN CORPUSCULAR HEMOGLOBIN 28 pg (25-35); MEAN CORPUSCULAR HGB CONC 34 g/dL (31-37); MEAN CORPUSCULAR VOLUME 83 fL (79-100); MONO # 0.5 x10^3/uL (0.0-1.1); MONO % 7 % (0-9); NEUT # 5.5 x10^3/uL (1.8-7.7); NEUT % 71 % (31-73); PLATELET COUNT 374 x10^3/uL (140-400); RED BLOOD COUNT 4.74 x10^6/uL (4.30-5.70); RED CELL DISTRIBUTION WIDTH 14.3 % (11.5-14.5); WHITE BLOOD COUNT 7.7 x10^3/uL (4.0-11.0)
[2020-01-24 10:17] LABS: ALBUMIN 3.6 g/dL (3.4-5.0); ALBUMIN/GLOBULIN RATIO 0.9 (1.0-1.7); CALCIUM 9.5 mg/dL (8.5-10.1); CREATININE 0.6 mg/dL (0.7-1.3); GFR 143.2; POTASSIUM 4.3 mmol/L (3.5-5.1); TOTAL BILIRUBIN 0.4 mg/dL (0.2-1.0); TOTAL PROTEIN 7.7 g/dL (6.4-8.2)
[2020-01-24 10:19] LABS: CHOLESTEROL/HDL RATIO 3.1
[2020-01-25 03:10] LABS: HEMOGLOBIN A1C 8.2 % (4.8-5.6)
== END ==
LOC: LAB 08:24
PROVIDERS: ATTEND Family Medicine
DX: E11.9 Type 2 diabetes mellitus without complications (principal); N49.2 Inflammatory disorders of scrotum; E78.49 Other hyperlipidemia
CPT/HCPCS: 36415; 80053; 80061; 83036; 85025

== ENCOUNTER → 2020-03-25 | Outpatient (CLI) | payer OTHER ==
[2020-03-25 08:43] LABS: ALBUMIN 3.4 g/dL (3.4-5.0); ALBUMIN/GLOBULIN RATIO 0.9 (1.0-1.7); CALCIUM 9.4 mg/dL (8.5-10.1); GFR 79.4; POTASSIUM 4.3 mmol/L (3.5-5.1); TOTAL BILIRUBIN 0.4 mg/dL (0.2-1.0); TOTAL PROTEIN 7.3 g/dL (6.4-8.2)
[2020-03-25 08:44] LABS: BASO % 0 % (0-3); CHOLESTEROL/HDL RATIO 2.7; EOS # 0.1 x10^3/uL (0.0-0.7); EOS % 1 % (0-3); HEMATOCRIT 40.4 % (39.0-53.0); HEMOGLOBIN 13.5 g/dL (13.0-17.5); LYMPH % 18 % (24-48); MEAN CORPUSCULAR HEMOGLOBIN 28 pg (25-35); MEAN CORPUSCULAR HGB CONC 33 g/dL (31-37); MEAN CORPUSCULAR VOLUME 84 fL (79-100); MONO # 0.8 x10^3/uL (0.0-1.1); MONO % 8 % (0-9); NEUT # 7.9 x10^3/uL (1.8-7.7); NEUT % 73 % (31-73); PLATELET COUNT 414 x10^3/uL (140-400); RED BLOOD COUNT 4.79 x10^6/uL (4.30-5.70); WHITE BLOOD COUNT 10.8 x10^3/uL (4.0-11.0)
[2020-03-26 02:27] LABS: HEMOGLOBIN A1C 6.2 % (4.8-5.6)
== END ==
LOC: LAB 07:49
PROVIDERS: ATTEND Family Medicine
DX: E78.49 Other hyperlipidemia (principal); E11.9 Type 2 diabetes mellitus without complications; R53.83 Other fatigue
CPT/HCPCS: 36415; 80053; 80061; 83036; 84443; 85025

== ENCOUNTER → 2020-06-23 | Outpatient (CLI) | payer OTHER ==
[2020-06-23 10:32] LABS: CALCIUM 8.9 mg/dL (8.5-10.1); CREATININE 0.8 mg/dL (0.7-1.3); GFR 102.3; POTASSIUM 4.8 mmol/L (3.5-5.1)
== END ==
LOC: LAB 09:54
PROVIDERS: ATTEND Family Medicine
DX: E87.6 Hypokalemia (principal)
CPT/HCPCS: 36415; 80048

== ENCOUNTER → 2020-10-05 | Outpatient (CLI) | payer OTHER ==
[2020-10-05 15:05] LABS: BASO # 0.1 x10^3/uL (0.0-0.2); BASO % 1 % (0-3); EOS # 0.1 x10^3/uL (0.0-0.7); EOS % 2 % (0-3); HEMATOCRIT 40.9 % (39.0-53.0); LYMPH # 2.4 x10^3/uL (1.0-4.8); LYMPH % 25 % (24-48); MEAN CORPUSCULAR HEMOGLOBIN 29 pg (25-35); MEAN CORPUSCULAR HGB CONC 34 g/dL (31-37); MEAN CORPUSCULAR VOLUME 86 fL (79-100); MONO # 0.8 x10^3/uL (0.0-1.1); MONO % 8 % (0-9); NEUT # 6.2 x10^3/uL (1.8-7.7); NEUT % 65 % (31-73); PLATELET COUNT 317 x10^3/uL (140-400); RED BLOOD COUNT 4.76 x10^6/uL (4.30-5.70); RED CELL DISTRIBUTION WIDTH 13.6 % (11.5-14.5); WHITE BLOOD COUNT 9.6 x10^3/uL (4.0-11.0)
[2020-10-05 16:14] LABS: CALCIUM 9.3 mg/dL (8.5-10.1); CREATININE 0.9 mg/dL (0.7-1.3); GFR 89.3; POTASSIUM 4.4 mmol/L (3.5-5.1)
[2020-10-06 01:14] LABS: HEMOGLOBIN A1C 5.7 % (4.8-5.6)
== END ==
LOC: LAB 14:45
PROVIDERS: ATTEND Family Medicine
DX: E11.9 Type 2 diabetes mellitus without complications (principal); I95.0 Idiopathic hypotension
CPT/HCPCS: 36415; 80048; 83036; 85025